=== PATIENT | male | born 1970 | race Two or more races ===

== ENCOUNTER 2020-10-26 14:55 | Outpatient (REF) | payer OTHER, SELFPAY ==
[2020-10-26 15:50] LABS: COVID-19 Test Negative (Negative)
== END 2020-10-26 14:56 | disposition home or self-care (01) ==
LOC: HO.LAB 14:55
PROVIDERS: Visit Provider Internal Medicine
DX: Z20.822 Contact with and (suspected) exposure to COVID-19 (principal)
CPT/HCPCS: 36415; 87635; C9803

== ENCOUNTER → 2022-09-08 10:19 | Outpatient (BNVA) | payer OTHER, SELFPAY | PROVIDERS: Visit Provider Internal Medicine | DX: M77.11 Lateral epicondylitis, right elbow (principal) | CPT/HCPCS: 73080; 99203 ==

== ENCOUNTER → 2022-09-15 14:40 | Outpatient (BNVA) | payer OTHER, SELFPAY | PROVIDERS: PCP Internal Medicine; Visit Provider Internal Medicine | DX: M77.11 Lateral epicondylitis, right elbow (principal); M70.841 Other soft tissue disorders related to use, overuse and pressure, right hand; M25.511 Pain in right shoulder | CPT/HCPCS: 99213 ==

== ENCOUNTER → 2022-09-25 12:57 | Outpatient (BNVA) | payer OTHER, SELFPAY | PROVIDERS: PCP Internal Medicine; Visit Provider Internal Medicine | DX: M77.11 Lateral epicondylitis, right elbow (principal); M25.511 Pain in right shoulder; M77.8 Other enthesopathies, not elsewhere classified | CPT/HCPCS: 99202; 99213 ==

== ENCOUNTER → 2022-10-10 14:44 | Outpatient (BNVA) | payer OTHER, SELFPAY | PROVIDERS: PCP Internal Medicine; Visit Provider Internal Medicine | DX: M77.11 Lateral epicondylitis, right elbow (principal); M75.01 Adhesive capsulitis of right shoulder | CPT/HCPCS: 99213 ==

== ENCOUNTER 2022-10-21 15:00 | Outpatient (RCR) | payer OTHER, SELFPAY ==
--- NOTE | 2022-09-19 14:58 | MHC.PT.EP ---
[facility] [place] Office [place] Office [place] Office [address] [place] [address] Dr Renan Smith [address] [phone] F: [phone] F: [phone] F: [phone] F: [phone] Physical Therapy Plan of Care Date of Evaluation: Date of Surgery: NA Diagnosis: R SHOULDER TENDONITIS Assessment: Pt IS 52 YO RHD M WHO DOES [employer] FOR WORK WITH C/O INCREASE IN R UE PAIN SINCE September WHILE WORKING ON [employer] (LOTS OF PULLING AND PUSHING). Pt WITH HX R CTS SURGERY. REPORTS SEEING OT ON THURSDAY FOR ELBOW AND WRIST ISSUES. HAS TENNIS ELBOW STRAP (NOT USING AT TIME OF EVAL..REPORTS FALLS OFF WHEN PUTS JACKET ON). IS REFERRED TO PT FOR R SHLDER TENDONITIS. PRESENTS WITH LIMITED END RANGE R SHLDER RANGE WITH PAIN, POOR POSTURE, WITH TIGHT PECS AND APPARENT LIMITATIONS IN UPPER BACK STRENGTH. R SHLDER STRENGTH IS GOOD WITH MMT. SHOULD BENEFIT FROM PT TO HELP STRETCH UPPER BACK AND CERVICAL MMS (LIMITED CERV ROM NOTED DURING EVAL), WORK ON POSTURE AND UPPER BACK/UE STRENGTHENING. Pt IS OOW SINCE 09/08. TO SEE OT ON 09/22, ORTHO ON 09/25, WC 09/25. OF NOTE, WITH INSURANCE UNABLE TO DO PT AND OT SESSIONS ON SAME DAY..MAY BENEFIT FROM TRANSFER OF CARE TO ALL OT OR ALL PT Frequency and Duration: The patient will be seen 2X/WK X 4 WKS Short Term Goals: 1. INCREASED POSTURE AWARENESS AND AWARENESS SHLDER CARE 2. CENTRALIZE SXS 3. RTW LT DUTY Snf Goals: 1. I HEP WITH DC EX PLAN 2. DECREASED SHLDER PAIN AT LEAST 50% WITH ADLS 3 INCREASED R SHLDER FLEX AND ABD 10 DEGREES 4. RTW FD Treatment Plan: Modalities to reduce pain, spasms and effusion. Manual therapy to restore motion and function. Therapeutic exercise to improve strength and flexibility. Neuromuscular re-education for posture and balance. Therapeutic activities to return to functional activities of daily living. Electronically signed by: KARL TO PT Please sign and return to therapist. Thank you for your referral.
--- NOTE | 2022-10-21 16:11 | MHC.PT.DC ---
[facility] [place] Office [place] Office [place] Office [address] Renan Smith [address] [phone] F: [phone] F: [phone] F: [phone] F: [phone] Physical Therapy Discharge Report Diagnosis: R SHOULDER TENDONITIS Date of Surgery: NA Date of Evaluation: 09/19/22 Date of Discharge: 10/21/22 Treatments to Date: 8 Cancellations to Date: No Shows to Date: Discharge Status: Achieved Goals Improved Function Independent with HEP Discharge Summary: HAS MET MOST PT GOALS (AWAITING RTW)GOOD PERF EXS WITH PLAN FOR GYM Electronically signed by: KARL TO PT Please sign and return to therapist. Thank you for your referral.
== END 2022-10-21 16:11 | disposition home or self-care (01) ==
LOC: HO.PT 15:00
PROVIDERS: PCP Internal Medicine; Visit Provider Internal Medicine
DX: M25.511 Pain in right shoulder (principal); M77.8 Other enthesopathies, not elsewhere classified
CPT/HCPCS: 97110; 97140; 97161; 97530; 97535

== ENCOUNTER → 2022-10-27 14:11 | Outpatient (BNVA) | payer OTHER, SELFPAY | PROVIDERS: PCP Internal Medicine; Visit Provider Orthopaedic Surgery | DX: M77.11 Lateral epicondylitis, right elbow (principal) | CPT/HCPCS: 99212 ==

== ENCOUNTER → 2022-11-03 10:05 | Outpatient (BNVA) | payer OTHER, SELFPAY | PROVIDERS: PCP Internal Medicine; Visit Provider Internal Medicine | DX: M77.11 Lateral epicondylitis, right elbow (principal); M25.511 Pain in right shoulder; M77.8 Other enthesopathies, not elsewhere classified | CPT/HCPCS: 99213 ==

== ENCOUNTER → 2022-12-08 08:31 | Outpatient (BNVA) | payer OTHER, SELFPAY | PROVIDERS: PCP Internal Medicine; Visit Provider Orthopaedic Surgery | DX: M77.11 Lateral epicondylitis, right elbow (principal) | CPT/HCPCS: 99212 ==

== ENCOUNTER → 2022-12-08 08:56 | Outpatient (BNVA) | payer OTHER, SELFPAY | PROVIDERS: PCP Internal Medicine; Visit Provider Internal Medicine | DX: M77.11 Lateral epicondylitis, right elbow (principal); M77.8 Other enthesopathies, not elsewhere classified; M25.511 Pain in right shoulder | CPT/HCPCS: 99213 ==

== ENCOUNTER → 2023-01-05 13:27 | Outpatient (BNVA) | payer OTHER, SELFPAY | PROVIDERS: PCP Internal Medicine; Visit Provider Internal Medicine | DX: M77.12 Lateral epicondylitis, left elbow (principal) | CPT/HCPCS: 99213 ==

== ENCOUNTER → 2023-02-05 15:04 | Outpatient (BNVA) | payer OTHER, SELFPAY | PROVIDERS: PCP Internal Medicine; Visit Provider Internal Medicine | DX: M77.11 Lateral epicondylitis, right elbow (principal); M77.21 Periarthritis, right wrist; M25.511 Pain in right shoulder | CPT/HCPCS: 99213 ==

== ENCOUNTER → 2023-03-12 14:57 | Outpatient (BNVA) | payer OTHER, SELFPAY | PROVIDERS: PCP Internal Medicine; Visit Provider Internal Medicine | DX: M77.11 Lateral epicondylitis, right elbow (principal); M77.8 Other enthesopathies, not elsewhere classified; M25.511 Pain in right shoulder | CPT/HCPCS: 99213 ==

== ENCOUNTER 2023-03-30 14:42 | Outpatient (AMB) | payer OTHER, SELFPAY ==
--- NOTE | 2023-03-30 15:09 | A.OFFVIS_ITS ---
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 He is looking to have an injection today. Allergies bee pollen [BEE STINGS] Allergy (Unknown, Unverified 03/30/23 15:14) SWELL UP Medication List - Last Reconciled 03/30/23 by Gely Bay RN atorvastatin 20 mg PO DAILY omeprazole 20 mg PO DAILY HPI OV- WC- Rt Tennis elbow HPI Details Cheko is a 52 year old man who presents for a follow-up of his right lateral epidoncylitis. This is a work-related injury, DOI: 09/08/22 He continues to feel like he has been improving with rest & therapy for his shoulder and elbow, but he continues to have pain. He says he recently aggravated his elbow at work again. He says work connections recommended he come in today for an injection. He has been following with [employer] and has been working light duty since his last appointment. He says his elbow is stiff and somewhat painful in the mornings, but this improves with time. 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 Review of Systems Const All systems reviewed & are unremarkable except as noted in HPI and below Physical Exam Const General: no acute distress, alert and awake Orientation/consciousness: patient oriented x3 HEENT Head: Yes normocephalic and Yes atraumatic Eyes EOM: EOMs intact bilaterally Resp Effort & Inspection: normal respiratory effort and able to speak in complete sentences Cardio Jugular venous distension: no JVD Skin General skin exam: turgor normal Rashes: no rashes Neuro General: patient oriented x3 Extrem Other: Tenderness to palpation lateral epicondyle Pain with resisted wrist extension Psych Appearance: grossly normal Affect: normal affect Attitude: cooperative Office Procedures Joint Injection/Drain Joint Injection/Drain Details: Injected 1 mL of Decadron and 3 mL 1% lidocaine and 3 mL of 0.25% Marcaine. Site was prepped using aseptic technique. Patient tolerated the procedure well. Primary Site: right tennis elbow Approach Used: anterolateral Coding 23721 - Epicondyle Procedure code (CPT) selection complete Results Reviewed Results Reviewed: 03/30/23 15:26 BUPivacaine MPF 0.25 % [Sensorcaine-MPF 0.25% 10 ML] 10 ml .ROUTE .STK-MED ONE Lidocaine HCl 1 % [Xylocaine 1 %] 2 ml .ROUTE .STK-MED ONE dexAMETHasone sod phosphate [Decadron] 4 mg .ROUTE .STK-MED ONE Assessment & Plan Assessment & Plan (1) Right lateral epicondylitis: Code(s): M77.11 - Lateral epicondylitis, right elbow Plan: This is a 52 year old man with right lateral epicondylitis. He injured his elbow on 09/08/22, working with [employer], and was sent for PT. He continues to have pain with heavy lifting or grasping activities, which has improved but he aggravated his arm at work recently, causing his pain to flare. He has returned to work following his last appointment, and has been following with [employer] concerning his restrictions. I discussed his diagnosis and treatment options. From an orthopedic perspective, I recommend he avoid lifting >20lb with his RUE, and limit or avoid any repetitive gripping activities. I injected his right lateral epicondyle today, which he tolerated well, and recommend he continue to wear his Counter-force brace. He can follow up prn. Plan Scribed for Jesus Shrestha MD by Denny Malloy, medical device engineer, on 03/30/23 at 3:30 PM, EST. Coding Level of Care Code Est Pt Level 3 (31809) Diagnoses Right lateral epicondylitis M77.11 CPT Codes Coding - Joint 2: 22210 - Epicondyle ([id number])
--- NOTE | 2023-03-30 15:09 | A.OFFVIS_ITS ---
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 of Systems Const All systems reviewed & are unremarkable except as noted in HPI and below Physical Exam Const General: no acute distress, alert and awake Orientation/consciousness: patient oriented x3 HEENT Head: Yes normocephalic and Yes atraumatic Eyes EOM: EOMs intact bilaterally Resp Effort & Inspection: normal respiratory effort and able to speak in complete sentences Cardio Jugular venous distension: no JVD Skin General skin exam: turgor normal Rashes: no rashes Neuro General: patient oriented x3 Psych Appearance: grossly normal Affect: normal affect Attitude: cooperative Office Procedures Joint Injection/Drain Joint Injection/Drain Details: Injected 1 mL of Decadron and 3 mL 1% lidocaine and 3 mL of 0.25% Marcaine. Site was prepped using aseptic technique. Patient tolerated the procedure well. Primary Site: right tennis elbow Approach Used: anterolateral Coding 56851 - Epicondyle Procedure code (CPT) selection complete Results Reviewed Results Reviewed: 03/30/23 15:26 BUPivacaine MPF 0.25 % [Sensorcaine-MPF 0.25% 10 ML] 10 ml .ROUTE .STK-MED ONE Lidocaine HCl 1 % [Xylocaine 1 %] 2 ml .ROUTE .STK-MED ONE dexAMETHasone sod phosphate [Decadron] 4 mg .ROUTE .STK-MED ONE Coding Level of Care Code Left Without Being Seen CPT Codes Coding - Joint 2: 00441 - Epicondyle ([id number]) Comment Duplicate note. Please disregard
== END 2023-03-30 15:48 | disposition home or self-care (01) ==
PROVIDERS: PCP Internal Medicine; Visit Provider Orthopaedic Surgery
DX: M77.11 Lateral epicondylitis, right elbow (principal)
CPT/HCPCS: 20550; 99213

== ENCOUNTER → 2023-03-30 14:42 | Outpatient (BNVA) | payer OTHER, SELFPAY | PROVIDERS: PCP Internal Medicine; Visit Provider Orthopaedic Surgery | DX: M77.11 Lateral epicondylitis, right elbow (principal) | CPT/HCPCS: 20550; 20551; 99212; J1100 ==

== ENCOUNTER → 2023-04-10 14:37 | Outpatient (BNVA) | payer OTHER, SELFPAY | PROVIDERS: PCP Internal Medicine; Visit Provider Physician Assistant | DX: M77.11 Lateral epicondylitis, right elbow (principal) | CPT/HCPCS: 99213 ==

== ENCOUNTER → 2023-04-29 11:34 | Outpatient (BNVA) | payer OTHER, SELFPAY | PROVIDERS: PCP Internal Medicine; Visit Provider Internal Medicine | DX: M77.11 Lateral epicondylitis, right elbow (principal) | CPT/HCPCS: 99213 ==

== ENCOUNTER → 2023-05-20 10:40 | Outpatient (BNVA) | payer OTHER, SELFPAY | PROVIDERS: PCP Internal Medicine; Visit Provider Internal Medicine | DX: M77.11 Lateral epicondylitis, right elbow (principal) | CPT/HCPCS: 99213 ==

== ENCOUNTER → 2023-06-05 09:35 | Outpatient (BNVA) | payer OTHER, SELFPAY | PROVIDERS: PCP Internal Medicine; Visit Provider Internal Medicine | DX: M77.11 Lateral epicondylitis, right elbow (principal) | CPT/HCPCS: 99213 ==

== ENCOUNTER 2023-06-22 09:19 | Outpatient (AMB) | payer OTHER, SELFPAY ==
--- NOTE | 2023-06-22 09:33 | MHC.OFFVIS ---
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 Last Injection done 03/30/23. Injection was not helpful but made it worse. Appt states MRI review, however i dont see mri ordered of study scanned. He states that work connection put MRI in the system but it is not there Allergies bee pollen [BEE STINGS] Allergy (Unknown, Unverified 03/30/23 15:14) SWELL UP HPI OV - WC Right Elbow - Last Injection 03/30/23 HPI Details Cheko is a 52 year old man who presents for a follow-up of his right lateral epidoncylitis. This is a work-related injury, DOI: 09/08/22 He continues to have pain & limited function with daily activity. He was last seen, and injected, on 03/30/23, which he says was helpful only briefly and was then followed by pain. He says [employer] ordered an MRI of his elbow and he is here for a review. 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 Review of Systems Const All systems reviewed & are unremarkable except as noted in HPI and below Physical Exam Const General: no acute distress, alert and awake Orientation/consciousness: patient oriented x3 HEENT Head: Yes normocephalic and Yes atraumatic Eyes EOM: EOMs intact bilaterally Resp Effort & Inspection: normal respiratory effort and able to speak in complete sentences Cardio Jugular venous distension: no JVD Skin General skin exam: turgor normal Rashes: no rashes Neuro General: patient oriented x3 Extrem Other: TTP over lateral epicondyle + dynamic resisted wrist extension test Psych Appearance: grossly normal Affect: normal affect Attitude: cooperative Results Reviewed Results Reviewed: I personally reviewed relevant MR images Partial thickness tearing/sprain of common extensor origin right elbow Assessment & Plan Assessment & Plan (1) Right lateral epicondylitis: Code(s): M77.11 - Lateral epicondylitis, right elbow Plan: 9 months of right lateral epicondyle pain that has not responded to injections, bracing and activity modification. He still cannot lift or engage in strenuous grasping required for his work in [employer]. I recommend a PRP injection. This has been shown to reduce the need for surgery and I would try to avoid surgery given length of recovery required and relatively low success rates. We will discuss with WC. In the meantime may continue current work restrictions. Plan Scribed for Jesus Shrestha MD by Denny Malloy, anesthesiology medical doctor, on 06/22/23 at 9:50 AM, EST. Coding Level of Care Code Est Pt Level 3 (62763) Diagnoses Right lateral epicondylitis M77.11
== END 2023-06-22 11:13 | disposition home or self-care (01) ==
PROVIDERS: PCP Internal Medicine; Visit Provider Orthopaedic Surgery
DX: M77.11 Lateral epicondylitis, right elbow (principal); Z04.2 Encounter for examination and observation following work accident
CPT/HCPCS: 99213

== ENCOUNTER → 2023-06-22 09:19 | Outpatient (BNVA) | payer OTHER, SELFPAY | PROVIDERS: PCP Internal Medicine; Visit Provider Orthopaedic Surgery | DX: M77.11 Lateral epicondylitis, right elbow (principal) | CPT/HCPCS: 99212 ==

== ENCOUNTER → 2023-06-24 10:11 | Outpatient (BNVA) | payer OTHER, SELFPAY | PROVIDERS: PCP Internal Medicine; Visit Provider Internal Medicine | DX: M77.11 Lateral epicondylitis, right elbow (principal) | CPT/HCPCS: 99213 ==

== ENCOUNTER 2023-07-24 13:37 | Outpatient (AMB) | payer OTHER, SELFPAY ==
--- NOTE | 2023-07-24 13:43 | A.OFFVIS_ITS ---
Intake Intake Visit Reasons: EP, PRP injection Right Elbow Intake Note: Cheko is a 52 year old male who presents today for a right elbow PRP injection. 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 Site was prepped using aseptic technique. Patient tolerated the procedure well. Primary Site: left tennis elbow Procedure: The patient tolerated the procedure well Coding 27988 - Epicondyle Procedure code (CPT) selection complete Assessment & Plan Assessment & Plan (1) Right lateral epicondylitis: Code(s): M77.11 - Lateral epicondylitis, right elbow Plan: Injected PRP right lateral epicondyle Coding Level of Care Code Est Pt Level 2 (19078) Diagnoses Right lateral epicondylitis M77.11 CPT Codes Coding - Joint 2: 43566 - Epicondyle ([id number])
== END 2023-07-24 15:41 | disposition home or self-care (01) ==
PROVIDERS: PCP Internal Medicine; Visit Provider Orthopaedic Surgery
DX: M77.11 Lateral epicondylitis, right elbow (principal)
CPT/HCPCS: 0232T

== ENCOUNTER → 2023-07-24 13:37 | Outpatient (BNVA) | payer OTHER, SELFPAY | PROVIDERS: PCP Internal Medicine; Visit Provider Orthopaedic Surgery ==

== ENCOUNTER → 2023-07-31 08:00 | Outpatient (BNVA) | payer OTHER, SELFPAY | PROVIDERS: PCP Internal Medicine; Visit Provider Internal Medicine | DX: M77.11 Lateral epicondylitis, right elbow (principal) | CPT/HCPCS: 99213 ==

== ENCOUNTER 2023-08-17 09:10 | Outpatient (AMB) | payer OTHER, SELFPAY ==
--- NOTE | 2023-08-17 09:17 | A.OFFVIS_ITS ---
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 PRP Injection done 07/24/2022. Patient reports that it is hard to tell if the injection has helped or not. Allergies bee pollen [BEE STINGS] Allergy (Unknown, Unverified 08/17/23 09:18) SWELL UP HPI ov- Right lateral epicondylitis HPI Details Cheko is a 53 year old man who returns ~1 month S/P right elbow PRP injection for his lateral epicondylitis, S/P work injury, DOI: 09/08/22. He says he is unsure if this injection helped him. He would like to discuss RTW restrictions. 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 Review of Systems Const All systems reviewed & are unremarkable except as noted in HPI and below Physical Exam Const General: no acute distress, alert and awake Orientation/consciousness: patient oriented x3 HEENT Head: Yes normocephalic and Yes atraumatic Eyes EOM: EOMs intact bilaterally Resp Effort & Inspection: normal respiratory effort and able to speak in complete sentences Cardio Jugular venous distension: no JVD Skin General skin exam: turgor normal Rashes: no rashes Neuro General: patient oriented x3 Extrem Other: TTP right lateral epicondyle NO STS inc site c/d/i Psych Appearance: grossly normal Affect: normal affect Attitude: cooperative Assessment & Plan Assessment & Plan (1) Right lateral epicondylitis: Code(s): M77.11 - Lateral epicondylitis, right elbow Plan: S/p PRTP lateral epicondyle COnt ROM and no strengthening no grasping or lifting at work F/u 4 weeks Plan Prepared for Jesus Shrestha MD by Denny Malloy, biomedical engineering internship, on 08/17/23 at 9:21 AM, EST. Coding Level of Care Code Est Pt Level 3 (91762) Diagnoses Right lateral epicondylitis M77.11
== END 2023-08-17 10:06 | disposition home or self-care (01) ==
PROVIDERS: PCP Internal Medicine; Visit Provider Orthopaedic Surgery
DX: M77.11 Lateral epicondylitis, right elbow (principal); Z04.2 Encounter for examination and observation following work accident
CPT/HCPCS: 99213

== ENCOUNTER → 2023-08-17 09:10 | Outpatient (BNVA) | payer OTHER, SELFPAY | PROVIDERS: PCP Internal Medicine; Visit Provider Orthopaedic Surgery | DX: M77.11 Lateral epicondylitis, right elbow (principal) | CPT/HCPCS: 99212 ==

== ENCOUNTER → 2023-08-19 07:50 | Outpatient (BNVA) | payer OTHER, SELFPAY | PROVIDERS: PCP Internal Medicine; Visit Provider Internal Medicine | DX: M77.11 Lateral epicondylitis, right elbow (principal) | CPT/HCPCS: 99213 ==

== ENCOUNTER 2023-09-14 09:19 | Outpatient (AMB) | payer OTHER, SELFPAY ==
[2023-09-14 09:20] VITALS: BMI 28.7
--- NOTE | 2023-09-14 09:20 | A.OFFVIS_ITS ---
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 PRP Injection done 07/24/2022. At his last visit he was advised to work on ROM with no strengthening and no grasping or lifting at work. Allergies bee pollen [BEE STINGS] Allergy (Unknown, Unverified 09/14/23 09:21) SWELL UP HPI ov- Right lateral epicondylitis HPI Details This is a 53-year-old gentleman with ongoing lateral epicondylitis. He had a PRP injection approximately 4 weeks ago. He states he thinks it was helpful but he still has pain with grasping activities. He feels like if he does any heavy activity with his right hand he has severe pain afterward and is unable to repeat that activity for several days. 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 It has been 4 weeks since the last PRP injection which I think was helpful and I recommend a repeat PRP injection. We had a long discussion regarding options. I think surgery is an option but it should be a last resort and I think a 2nd round of PRP has been shown to be helpful. We will do this again with ultrasound guidance. His work restrictions should remain unchanged. Coding Level of Care Code Est Pt Level 4 (60666) Diagnoses Right lateral epicondylitis M77.11
== END 2023-09-16 14:43 | disposition home or self-care (01) ==
PROVIDERS: PCP Internal Medicine; Visit Provider Orthopaedic Surgery
DX: M77.11 Lateral epicondylitis, right elbow (principal); Z04.2 Encounter for examination and observation following work accident
CPT/HCPCS: 99214

== ENCOUNTER → 2023-09-14 09:19 | Outpatient (BNVA) | payer OTHER, SELFPAY | PROVIDERS: PCP Internal Medicine; Visit Provider Orthopaedic Surgery | DX: M77.11 Lateral epicondylitis, right elbow (principal) | CPT/HCPCS: 99212 ==

== ENCOUNTER → 2023-09-23 07:53 | Outpatient (BNVA) | payer OTHER, SELFPAY | PROVIDERS: PCP Internal Medicine; Visit Provider Internal Medicine | DX: M77.11 Lateral epicondylitis, right elbow (principal) | CPT/HCPCS: 99213 ==

== ENCOUNTER 2023-10-16 12:03 | Outpatient (AMB) | payer OTHER, SELFPAY ==
--- NOTE | 2023-10-16 12:06 | MHC.OFFVIS ---
Intake Intake Visit Reasons: PRP injection Intake Note: This is a 53 year old male that presents for a PRP injection of the left elbow. 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
== END 2023-10-16 13:23 | disposition home or self-care (01) ==
LOC: HO.HOSPRC 12:03
PROVIDERS: PCP Internal Medicine; Visit Provider Orthopaedic Surgery
DX: M77.11 Lateral epicondylitis, right elbow (principal)
CPT/HCPCS: 0232T

== ENCOUNTER → 2023-10-16 12:03 | Outpatient (BNVA) | payer OTHER, SELFPAY | PROVIDERS: PCP Internal Medicine; Visit Provider Orthopaedic Surgery ==

== ENCOUNTER → 2023-10-26 07:52 | Outpatient (BNVA) | payer OTHER, SELFPAY | PROVIDERS: PCP Internal Medicine; Visit Provider Internal Medicine | DX: M77.11 Lateral epicondylitis, right elbow (principal) | CPT/HCPCS: 99213 ==

== ENCOUNTER 2023-12-03 08:18 | Outpatient (AMB) | payer OTHER, SELFPAY ==
[2023-12-03 08:21] VITALS: BMI 28.7
--- NOTE | 2023-12-03 08:21 | A.OFFVIS_ITS ---
Vital Signs 12/03/23 08:21 Height 6 ft 3 in Weight 230 lb BMI 28.7 Intake Visit Reasons: OV - Right Lateral Epicondylitis - PRP 10/16/23 Intake Note: Cheko is a 53 year old right hand dominant male who presents today for a follow up of his Right lateral Epicondylitis, this is a work related injury from 09/08/22. PRP injections in the right elbow administered on 10/16/23 & 07/24/2022. Patient reports that he feels that he is improving but he has been resting the arm significantly. Allergies bee pollen [BEE STINGS] Allergy (Unknown, Unverified 10/16/23 12:07) SWELL UP HPI HPI OV - Right Lateral Epicondylitis - PRP 10/16/23: Details: Cheko is a 53 year old right hand dominant male who presents today for a follow up of his Right lateral Epicondylitis, this is a work related injury from 09/08/22. PRP injections in the right elbow administered on 10/16/23 & 07/24/2022. Patient reports that he feels that he is improving but he has been resting the arm significantly. 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
== END 2023-12-03 09:20 | disposition home or self-care (01) ==
PROVIDERS: PCP Internal Medicine; Visit Provider Orthopaedic Surgery
DX: M77.11 Lateral epicondylitis, right elbow (principal)
CPT/HCPCS: 99213

== ENCOUNTER → 2023-12-03 08:18 | Outpatient (BNVA) | payer OTHER, SELFPAY | PROVIDERS: PCP Internal Medicine; Visit Provider Orthopaedic Surgery | DX: M77.11 Lateral epicondylitis, right elbow (principal) | CPT/HCPCS: 99212 ==

== ENCOUNTER → 2023-12-07 08:02 | Outpatient (BNVA) | payer OTHER, SELFPAY | PROVIDERS: PCP Internal Medicine; Visit Provider Internal Medicine | DX: M77.11 Lateral epicondylitis, right elbow (principal) | CPT/HCPCS: 99213 ==

== ENCOUNTER 2024-01-04 08:20 | Outpatient (AMB) | payer OTHER, SELFPAY ==
[2024-01-04 08:27] VITALS: BMI 28.7
--- NOTE | 2024-01-04 08:27 | MHC.OFFVIS ---
Vital Signs 01/04/24 08:27 01/04/24 08:33 Height 6 ft 3 in 6 ft 3 in Weight 230 lb 230 lb BMI 28.7 28.7 Handedness Right Intake Visit Reasons: OV- Right Lateral Epicondylitis - PRP 10/16/23 Intake Note: Cheko is a 53 year old male who presents today for a follow up of Right Lateral Epicondylitis, PRP 10/16/23. This is a work related injury from 09/08/22. PRP injections in the right elbow administered on 10/16/23 & 07/24/2022. Patient reports he is still having pain and tenderness, when he straightens his arm he reports sharp pain. He explains repetitive motion and heavy weight like carrying groceries causes more discomfort. Allergies bee pollen [BEE STINGS] Allergy (Unknown, Unverified 01/04/24 08:33) SWELL UP HPI HPI OV- Right Lateral Epicondylitis - PRP 10/16/23: Details: Cheko is a 53 year old male who presents today for a follow up of Right Lateral Epicondylitis, PRP 10/16/23. This is a work related injury from 09/08/22. PRP injections in the right elbow administered on 10/16/23 & 07/24/2022. Patient reports he is still having pain and tenderness, when he straightens his arm he reports sharp pain. He explains repetitive motion and heavy weight like carrying groceries causes more discomfort. He has not returned to work. 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 He states his pain is tolerable unless he engages in repetitive grasping activities. 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 Full range of motion right elbow Assessment & Plan Assessment & Plan (1) Right lateral epicondylitis: Code(s): M77.11 - Lateral epicondylitis, right elbow Category: Medical Plan: This is a 53-year-old right-hand dominant gentleman with refractory lateral epicondylitis of the right elbow. We have tried PRP injections x2 and while he has had relief he still has pain any time he engages in forceful grasping activities with his right hand. We had a long discussion. I recommend open debridement of the lateral epicondyle. I explained the procedure to him. I discussed the risks, benefits and alternatives including, but not limited to, infection, stiffness, incomplete symptom resolution, pain. He expressed understanding and we will proceed forward accordingly. Coding Level of Care Code Est Pt Level 4 (57611) Diagnoses Right lateral epicondylitis M77.11
[2024-01-04 08:33] VITALS: BMI 28.7
== END 2024-01-04 08:59 | disposition home or self-care (01) ==
PROVIDERS: PCP Internal Medicine; Visit Provider Orthopaedic Surgery
DX: M77.11 Lateral epicondylitis, right elbow (principal)
CPT/HCPCS: 99214

== ENCOUNTER → 2024-01-04 08:20 | Outpatient (BNVA) | payer OTHER, SELFPAY | PROVIDERS: PCP Internal Medicine; Visit Provider Orthopaedic Surgery | DX: M77.11 Lateral epicondylitis, right elbow (principal) | CPT/HCPCS: 99212 ==

== ENCOUNTER 2024-02-09 12:11 | Outpatient (AMB) | payer OTHER, SELFPAY ==
--- NOTE | 2024-02-09 12:24 | A.OFFVIS_ITS ---
Vital Signs 02/09/24 12:33 Height 6 ft 3 in Weight 230 lb BMI 28.7 Intake Visit Reasons: Preop RT epicondylitis debridement 02/10/24 NE Intake Note: Black is a 53 year old right hand dominant male who presents today for a pre op appointment for his RT epicondylitis debridement 02/10/24 NE. Allergies bee pollen [BEE STINGS] Allergy (Unknown, Verified 02/09/24 12:33) SWELL UP HPI HPI Preop RT epicondylitis debridement 02/10/24 NE: Details: 53-year-old right hand dominant male who presents in the office today for his/her preoperative history and physical exam prior to a right elbow open debridement of the lateral epicondyle to be performed on 02/10/[address] Jesus Shrestha.? ? Patient has an allergy history, as follows:? -Bee pollen; edema? ? Patient is currently taking, as follows:? -Omeprazole 20 mg PO daily? ? Patient has no significant medical history.? ? Patient has a surgical history, as follows:? -Hx of right carpal tunnel release? ? Patient has a social history, as follows:? 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 Review of Systems Const All systems reviewed & are unremarkable except as noted in HPI and below Physical Exam Vital Signs: BMI result Body Mass Index 28.7 Const General: cooperative, healthy appearing, comfortable, no acute distress, well developed, alert and awake Orientation/consciousness: patient oriented x3 HEENT Head: Yes normal to inspection, Yes normocephalic and Yes atraumatic Eyes General: appearance normal, both eyes and all related structures Neck Neck: Yes normal visual inspection and Yes no lymphadenopathy Resp Effort & Inspection: normal respiratory effort and able to speak in complete sentences Cardio Rate: regular rate Peripheral pulses: Peripheral pulses 2+ throughout GI Inspection: Yes normal to inspection Palpation (GI): Soft to palpation Skin General skin exam: no rashes or lesions noted Neuro General: patient oriented x3 Extrem Other: Right elbow: ttp lateral epicondyle Pain with resisted wrist extension and long finger extension. Full range of motion right elbow Psych Mental Status: mental status grossly normal Assessment & Plan Assessment & Plan (1) Right lateral epicondylitis: Code(s): M77.11 - Lateral epicondylitis, right elbow Category: Medical Plan Mr. Almaraz is a 53-year-old right hand dominant male who presents in the office today for his/her preoperative history and physical exam prior to a right elbow open debridement of the lateral epicondyle to be performed on 02/10/[address] Jesus Shrestha.? ? Patient has an allergy history, as follows:? -Bee pollen; edema? ? Patient is currently taking, as follows:? -Omeprazole 20 mg PO daily? ? Patient has no significant medical history.? ? Patient has a surgical history, as follows:? -Hx of right carpal tunnel release? ? Patient has a social history, as follows:? 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 ? I discussed in detail the procedure and what to expect pre and post operatively. We discussed the risks, benefits, alternatives to the surgery and the rehabilitation course. The risks include infection, bleeding, nerve injury, ongoing pain, swelling, and stiffness, perioperative risk of injury to bones and soft tissues, and blood clots.?? ? I have answered all questions and with their understanding they have consented to move forward with a right elbow open debridement of the lateral epicondyle to be performed on 02/10/[address] Jesus Shrestha.? ? Follow-up will be at the post operative appointment on 02/18/24, or sooner if needed.? Patient Instructions: Scribed by Justine Michael medical sales specialist, for Juliana Smith PA-C on 02/09/2024 at 12:15 pm, EST.? Coding Level of Care Code Global (75953) Diagnoses Right lateral epicondylitis M77.11
[2024-02-09 12:33] VITALS: BMI 28.7
== END 2024-02-09 12:50 | disposition home or self-care (01) ==
PROVIDERS: PCP Internal Medicine; Visit Provider Physician Assistant
DX: M77.11 Lateral epicondylitis, right elbow (principal)
CPT/HCPCS: 99024

== ENCOUNTER → 2024-02-09 12:11 | Outpatient (BNVA) | payer OTHER, SELFPAY | PROVIDERS: PCP Internal Medicine; Visit Provider Physician Assistant | DX: Z01.818 Encounter for other preprocedural examination (principal); M77.11 Lateral epicondylitis, right elbow | CPT/HCPCS: 99212 ==

== ENCOUNTER 2024-02-10 05:44 | Day surgery (SDC) | payer OTHER, SELFPAY ==
[2024-02-08 07:44] VITALS: BMI 28.7
--- NOTE | 2024-02-09 10:11 | HO.ANESPROP2 ---
Documented by User: Sabine Ha NP 02/09/24 10:12 HPI - Anesthesia Eval Consult details Narrative: 53yo M for Right Lateral Epicondylitis Elbow Debridement PMFSH Active Problems Active Problems: All Active Problems Right lateral epicondylitis (Acute) Elbow pain, right (Acute ~09/08/22) Surgical History Surgical History History of carpal tunnel release Social History Social History Alcohol intake: never Patient Tobacco Use Status: Current everyday Tobacco user Tobacco use type: Smokeless Tobacco Cigarettes Per Day: 1 e-Cigarette/Vaping Use: Currently Using Are you DNR?: No Advance Directives: No Advance Directives Information Provided: Yes Recently lost weight without trying: No Nutrition Risks: No Nutritional Risk Current occupational status: employed Current occupation: [employer] Allergies Allergy/AdvReac Type Severity Reaction Status Date / Time bee pollen [BEE STINGS] Allergy Unknown SWELL UP Verified 02/09/24 12:33 Home Medications ?Medication ?Instructions ?Recorded ?Confirmed ?Last Taken ?Type omeprazole 20 mg capsule,delayed 20 mg PO DAILY 09/25/22 10/16/23 Unknown History release Exam Height,Weight and Vital Signs: Height 6 ft 3 in Weight 104.326 kg Assessment and Plan Assessment Anesthesia Assessment: Chart Reviewed Documented by User: Luz Canseco MD 02/10/24 07:25 PMFSH Family History Family history of problems with anesthesia: No Surgical History Surgical History History of carpal tunnel release History of Problems with Anesthesia: No Social History Social History Alcohol intake: never Patient Tobacco Use Status: Current everyday Tobacco user Tobacco use type: Smokeless Tobacco Cigarettes Per Day: 1 e-Cigarette/Vaping Use: Currently Using Are you DNR?: No Advance Directives: No Advance Directives Information Provided: Yes Recently lost weight without trying: No Nutrition Risks: No Nutritional Risk Current occupational status: employed Current occupation: [employer] Allergies Allergy/AdvReac Type Severity Reaction Status Date / Time bee pollen [BEE STINGS] Allergy Unknown SWELL UP Verified 02/09/24 12:33 Home Medications ?Medication ?Instructions ?Recorded ?Confirmed ?Last Taken ?Type omeprazole 20 mg capsule,delayed 20 mg PO DAILY 09/25/22 10/16/23 Unknown History release Exam Airway Mallampati Class: II TM Dist: >3cm Neck ROM: Full Heart: rrr Lungs: cta Assessment and Plan Assessment Anesthesia Assessment: Anesthesia Plan Discussed Final Anesthetic Review Family History of Problems with Anesthesia: No History of Problems with Anesthesia: No NPO: Yes ASA Class: II Final Preanesthetic Review: No Changes in Pt Med Stat, Meds/Allgs Chart Reviewed, Consent Obtained/Reviewed and Anes Risks/Benef Reviewed Patient Risk: Low Procedure Risk: Low Anesthetic Plan Anesthetic Plan: GA Disposition: Standard PACU
[2024-02-10] VITALS (8 sets, daily range): BP systolic 116–142; BP diastolic 69–97; PULSE 72–96; RESP 16–20; TEMP 36.2–36.8; O2SAT 92–97; BMI 28.7
[2024-02-10] MEDS: Lactated Ringers 1,000 ML 100 ML IVCONT (06:16)
--- NOTE | 2024-02-10 07:29 | MHC.SHP ---
Pre-Procedural Eval Section A - 24 Hr Update-Section A only Date of Service: 02/10/24 The patient is an INPATIENT: No Changes since office visit: No Cold of Flu in the past 2 weeks, No New Medical Problems, No Changes in Medication and No Patient answered all questions The patient has been examined within 24 hours of the surgical procedure. The History & Physical has been completed within 30 days and I have reviewed it.: Yes Section B - Complete if H&P > 30 days Chief Complaint: Lateral epicondylitis, right elbow Allergies: Allergies Allergy/AdvReac Type Severity Reaction Status Date / Time bee pollen [BEE STINGS] Allergy Unknown SWELL UP Verified 02/09/24 12:33 Plan I have reviewed the history and physical and performed a pertinent physical examination on my patient. No changes have occurred unless specified. Time Spent With Patient Time: Total time managing care of this patient today ____ minutes.
--- NOTE | 2024-02-10 08:41 | P.BOP_ITS ---
Brief Operative Note Date of Service: 02/10/24 Pre-op diagnosis: Right lateral epicondylitis Post-op diagnosis: same Procedure: Right elbow debridement of lateral epicondyle Surgeon: Jesus Shrestha MD Anesthesia: GETA Was an Nurses' Association Executive Director used for this Procedure?: No Nurses' Association Executive Director: Juliana Smith Estimated blood loss (mL): 2 Tourniquet time (min): 26 IV fluids (mL): 600 Pathology: other Condition: stable Disposition: PACU Assessment and Plan (No Qualifiers) Assessment and Plan (1) Right lateral epicondylitis: Status: Acute Plan: Gentle ROM as tolerated when splint removed at post op. No lifting and no resistance. Initiate gentle resistance with OT at 6 weeks post op
--- NOTE | 2024-02-10 11:01 | P.OP_ITS ---
Operative Note Operative Note Date of Service: 02/10/24 Narrative: Date of Service: 02/10/24 Pre-op diagnosis: Right lateral epicondylitis Post-op diagnosis: same Procedure: Right elbow debridement of lateral epicondyle Surgeon: Jesus Shrestha MD Anesthesia: GETA Was an Lining Ironer used for this Procedure?: No Lining Ironer: Juliana Smith Estimated blood loss (mL): 2 Tourniquet time (min): 26 IV fluids (mL): 600 Pathology: other Condition: stable Disposition: PACU Patient was brought to the operating room and placed supine on the surgical table. He was prepped and draped in standard sterile fashion and a time out was called to identify proper site, proper procedure and IV antibiotics per weight were administered. I began by insufflating the tourniquet to 250 and made a standard anterolateral incision just anterior to the lateral epicondyle obliquely from P to A. Littler scissors were used to dissect down to the extensor aponeurosis and the deep fascia over the ECRL. An deep incision was made from the anterior tip of the lateral epicondyle distally along the posterior border of the ECRL fascia. The ECRL was then retracted anteriorly and the fibers of the ECRB were identified. This was tendonic in appearance and I excised ~ 75% of the ECRB tendon. I inspected the underside of the ECRL and there was no additional tendonotic tissue. I debrided the lateral epicondyle down to bleeding bone and then irrigated copiously. I then closed the fascia with 0 Vicryl and then the sub Q with simple 3.0 Vicryl and then added a V-lock, skin glue and steri strips. I injected ~ 10 ml of 1/2 plain marcaine along the incision and deep along the lateral epicondyle. The patient was palced in a sling and a lateral bolster splint, extubated and brought to the recovery room in stable condition. There were no known complications.
== END 2024-02-10 10:07 | disposition home or self-care (01) ==
PROVIDERS: Visit Provider Orthopaedic Surgery
PROC: (CPT 24358; principal; 2024-02-10 07:30)
DX: M77.11 Lateral epicondylitis, right elbow (principal); Z79.899 Other long term (current) drug therapy; Z98.890 Other specified postprocedural states; F17.210 Nicotine dependence, cigarettes, uncomplicated
CPT/HCPCS: 24358; 88304; 88311; J0131; J0690; J1100; J1170; J2250; J2405; J2704; J2795; J3010

== ENCOUNTER → 2024-02-10 05:44 | Outpatient (BNV) | payer OTHER, SELFPAY | PROVIDERS: Visit Provider Orthopaedic Surgery | DX: M77.11 Lateral epicondylitis, right elbow (principal) | CPT/HCPCS: 24358 ==

== ENCOUNTER → 2024-02-15 08:10 | Outpatient (BNVA) | payer OTHER, SELFPAY | PROVIDERS: Visit Provider Internal Medicine | DX: M77.11 Lateral epicondylitis, right elbow (principal) | CPT/HCPCS: 99213 ==

== ENCOUNTER 2024-02-18 13:59 | Outpatient (AMB) | payer OTHER, SELFPAY ==
--- NOTE | 2024-02-18 14:23 | A.OFFVIS_ITS ---
Intake Visit Reasons: PO RT epicondylitis debridement 02/10/24 NE Intake Note: Black is a 53 year old right hand dominant male who presents today for a post op appointment s/p RT epicondylitis debridement 02/10/24 NE. He states he is having stiffness and soreness. Patient mentions he is doing well. Allergies bee pollen [BEE STINGS] Allergy (Unknown, Verified 02/09/24 12:33) SWELL UP HPI HPI PO RT epicondylitis debridement 02/10/24 NE: Details: 53-year-old male who presents in the office today 8 days status post right elbow debridement of lateral epicondyle, which was performed on 02/10/[address] Shrestha. ? ? While in the office today, the patient reports he is doing well. He does, however, reports some stiffness and soreness in the right elbow. ? 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 No surrounding erythema or drainage. No signs of infection. Lacking about 10 degrees of full extension. Able to perform full pronation, supination, and flexion. NVI. Assessment & Plan Assessment & Plan (1) Right lateral epicondylitis: Code(s): M77.11 - Lateral epicondylitis, right elbow Category: Medical Plan Mr. Almaraz is a 53-year-old male who presents in the office today 8 days status post right elbow debridement of lateral epicondyle, which was performed on 02/10/[address] Shrestha. ? ? While in the office today, the patient reports he is doing well. He does, however, reports some stiffness and soreness in the right elbow.? ? The patient will continue to work on gentle ROM. He should avoid heavy lifting. Steri-stripes were reapplied in the office today. He can shower without covering the area. Follow-up will be in four weeks, or sooner if needed. ? Patient Instructions: Scribed by Justine Michael medical payment poster, for Juliana Smith PA-C on 02/18/2024 at 2:28 pm, EST.? Coding Level of Care Code Global (31899) Diagnoses Right lateral epicondylitis M77.11
== END 2024-02-18 14:42 | disposition home or self-care (01) ==
PROVIDERS: PCP Internal Medicine; Visit Provider Physician Assistant
DX: M77.11 Lateral epicondylitis, right elbow (principal)
CPT/HCPCS: 99024

== ENCOUNTER → 2024-02-18 13:59 | Outpatient (BNVA) | payer OTHER, SELFPAY | PROVIDERS: PCP Internal Medicine; Visit Provider Physician Assistant | DX: Z47.89 Encounter for other orthopedic aftercare (principal) | CPT/HCPCS: 99212 ==

== ENCOUNTER → 2024-03-09 07:55 | Outpatient (BNVA) | payer OTHER, SELFPAY | PROVIDERS: PCP Internal Medicine; Visit Provider Internal Medicine | DX: M77.11 Lateral epicondylitis, right elbow (principal) | CPT/HCPCS: 99213 ==

== ENCOUNTER 2024-03-17 13:26 | Outpatient (AMB) | payer OTHER, SELFPAY ==
--- NOTE | 2024-03-17 13:36 | A.OFFVIS_ITS ---
Intake Visit Reasons: PO RT epicondylitis debridement 02/10/24 NE Intake Note: Black is a 53 year old right hand dominant male who presents today for a post op appointment s/p RT epicondylitis debridement 02/10/24 NE. Patient reports he is doing well, he has pain and stiffnes that radiates from his elbow down to his knuckles. He has no other concerns. Allergies bee pollen [BEE STINGS] Allergy (Unknown, Verified 03/17/24 13:39) SWELL UP HPI HPI PO RT epicondylitis debridement 02/10/24 NE: Details: 53-year-old right hand dominant male who presents in the office today 5 weeks s tatus post right elbow debridement of lateral epicondyle, which was performed on 02/10/[address] Shrestha. I last saw the patient in the office on 02/18/24 when he was to continue to work on gentle ROM and was instructed to avoid heavy lifting. ? ? While in the office today, the patient reports he is doing well. He does reports pain and stiffness that radiates from his right elbow to his knuckles. He expresses no other concerns today. ? 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 Able to perform full flexion and extension but does have pain with the last 10 degrees of flexion. Reports stiffness along the extensor tendons in the little and ring fingers. Unequal remote inpatient coder strength with decreased remote inpatient coder strength on the right. NVI.? Assessment & Plan Assessment & Plan (1) Right lateral epicondylitis: Code(s): M77.11 - Lateral epicondylitis, right elbow Category: Medical Plan Mr. Almaraz is a 53-year-old right hand dominant male who presents in the office today 5 weeks status post right elbow debridement of lateral epicondyle, which was performed on 02/10/[address] Shrestha. I last saw the patient in the office on 02/18/24 when he was to continue to work on gentle ROM and was instructed to avoid heavy lifting. ? ? While in the office today, the patient reports he is doing well. He does reports pain and stiffness that radiates from his right elbow to his knuckles. He expresses no other concerns today.? ? The patient will be referred to occupational therapy. He will remain out of work until his follow-up. Follow-up will be in four weeks with Dr. Shrestha, or sooner if needed. ? Patient Instructions: Scribed by Justine Michael medical laboratory manager, for Juliana Smith PA-C on 03/17/2024 at 1:27 pm, EST.? Coding Level of Care Code Global (47070) Diagnoses Right lateral epicondylitis M77.11
== END 2024-03-17 13:51 | disposition home or self-care (01) ==
PROVIDERS: PCP Internal Medicine; Visit Provider Physician Assistant
DX: M77.11 Lateral epicondylitis, right elbow (principal)
CPT/HCPCS: 99024

== ENCOUNTER → 2024-03-17 13:26 | Outpatient (BNVA) | payer OTHER, SELFPAY | PROVIDERS: PCP Internal Medicine; Visit Provider Physician Assistant | DX: M77.11 Lateral epicondylitis, right elbow (principal); Z98.890 Other specified postprocedural states | CPT/HCPCS: 99212 ==

== ENCOUNTER 2024-04-14 08:29 | Outpatient (AMB) | payer OTHER, SELFPAY ==
[2024-04-14 08:30] VITALS: BMI 31.2
--- NOTE | 2024-04-14 08:30 | MHC.OFFVIS ---
Vital Signs 04/14/24 08:30 Height 6 ft 3 in Weight 250 lb BMI 31.2 Intake Visit Reasons: PO RT epicondylitis debridement 02/10/24 NE Intake Note: Cheko is a 53 year old right hand dominant male who presents today for a post operative appointment s/p Right lateral epicondylitis debridement 02/10/24. Patient wa instructed to work on gentle ROM and engage in no heavy lifting. He remains out of work at this time. He continues to work with OT which is going well, he has some mild soreness and a burning pain in the volar aspect of the forearm. This is being worked on in OT, but he has no additional concerns at this time. Allergies bee pollen [BEE STINGS] Allergy (Unknown, Verified 04/14/24 08:32) SWELL UP HPI HPI PO RT epicondylitis debridement 02/10/24 NE: Details: Cheko is a 53 year old right hand dominant male who presents today for a post operative appointment s/p Right lateral epicondylitis debridement 02/10/24. Patient wa instructed to work on gentle ROM and engage in no heavy lifting. He remains out of work at this time. He continues to work with OT which is going well, he has some mild soreness and an occasional burning pain in the volar aspect of the forearm. This is being worked on in OT, and he has no additional concerns at this time. He is currently out of work. 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 Continue PT. No work at this time. F/u 6 weeks Coding Level of Care Code Global (86707) Diagnoses Right lateral epicondylitis M77.11
== END 2024-04-14 08:46 | disposition home or self-care (01) ==
PROVIDERS: PCP Internal Medicine; Visit Provider Orthopaedic Surgery
DX: M77.11 Lateral epicondylitis, right elbow (principal)
CPT/HCPCS: 99024

== ENCOUNTER → 2024-04-14 08:29 | Outpatient (BNVA) | payer OTHER, SELFPAY | PROVIDERS: PCP Internal Medicine; Visit Provider Orthopaedic Surgery | DX: M77.11 Lateral epicondylitis, right elbow (principal); Z98.890 Other specified postprocedural states | CPT/HCPCS: 99212 ==

== ENCOUNTER 2024-05-23 09:52 | Outpatient (RCR) | payer OTHER, SELFPAY ==
--- NOTE | 2024-04-04 11:28 | MHC.OT.EP ---
[address] [phone] Occupational Therapy Plan of Care Patient Name: Cheko Almaraz Date of Evaluation: 04/04/24 Diagnosis: Post-op Right Epicondylitis Debridement Pain Location: Mostly pain free at rest Sharp pain w/ quick or heavy movements Pain Score: 4 Pain Scale Used: Numeric (0 - 10) Aggravating Factors: Reaching, gripping Alleviating Factors: Nothing used, pain is spontaneous and no need for prolonged pain management Assessment: 53 yo male w/ hx of right lateral epicondylitis, was seen for course of OT and reportedly had some relief, but persistent pain and referred self back to ortho. He tried PRP treatment w/ some relief and healing, but eventually opted for surgical debridement. Now post-op debridement 02/10/24 w/ Dr Shrestha, referred to therapy due to some persistent pain and tightness. On assessment today, surgical incision well healed and he has good upper extremity range, some feeling of tightness w/ end range elbow flexion and extension. He has decreased distribution estimator strength compared to left, but still functional (R 80lb L 115lb). He reports occasional tinging over right radial wrist w/ rotational movements but not consistent, and he has weakness in right small finger, but not limiting general motor control. I anticipate he will do well w/ OT for strengthening and continued pain management. Frequency and Duration: The patient will be seen 2x/wk for 6 weeks Short Term Goals: Ind w/ self massage Ind w. FMC challenges at home Ind w/ HEP Full elbow flex/ext AROM w/ ease Moose Hunter Goals: Right gross grasp 100lb Ind w/ progression of strengthening program Pt to report ease of right radial wrist sensory changes QuickDASH score <40pts Treatment Plan: Therapeutic Exercise Therapeutic Activity Home Exercise Program Patient Education Desensitization/Sensory Re-ed Edema Control ADL Training Ultrasound MHP Cold Packs Soft Tissue Mobilization Kinesiotaping Electronically Signed By: Nicole Sarabia OTR/L CHT Please Sign and return to therapist. Thank you once again for your referral.
--- NOTE | 2024-05-23 11:41 | MHC.OT.DC ---
[address] [phone] F: [phone] Occupational Therapy Discharge Note Patient Name: Cheko Almaraz Provider: Juliana Smith PA-C Diagnosis: Post-op Right Epicondylitis Debridement Date of Surgery: 02/10/24 Date of Evaluation: 04/04/24 Date of Discharge: 05/23/24 Treatments to Date: 12 Discharge Status: Achieved Goals Improved Function Independent with HEP Discharge Summary: Cheko is >3 months post-op right lateral elbow debridement. 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 He has good follow through w/ HEP and good understanding of joint protection and activity modification techniques, no further Ot services need at this time, he is Ind w/ self management. Electronically Signed By: Nicole Sarabia OTR/Cheryle CHT Reviewed/agree with student documentation: Therapist: Please Sign and return to therapist, thank you for your referral.
== END 2024-05-23 11:42 | disposition home or self-care (01) ==
LOC: HO.OT 09:52
PROVIDERS: PCP Internal Medicine; Visit Provider Physician Assistant
DX: M77.11 Lateral epicondylitis, right elbow (principal)
CPT/HCPCS: 97033; 97110; 97140; 97165

== ENCOUNTER 2024-05-26 08:08 | Outpatient (AMB) | payer OTHER, SELFPAY ==
--- NOTE | 2024-05-26 08:27 | MHC.OFFVIS ---
Intake Visit Reasons: OV RT epicondylitis debridement 02/10/24 NE Intake Note: Cheko is a 53 year old right hand dominant male who presents today for a post operative appointment s/p Right lateral epicondylitis debridement 02/10/24. Patient reports that he is continuing to have mild pain, but has increased pain with repetitive motion, weighted activity, full extension and full flexion. He feels a popping on the lateral aspect of the right elbow that has been present for about 2 weeks. Has completed OT, but still has weakness of the right hand. He remains out of work at this time. Allergies bee pollen [BEE STINGS] Allergy (Unknown, Verified 05/26/24 08:32) SWELL UP HPI HPI OV RT epicondylitis debridement 02/10/24 NE: Details: Cheko is a 53 year old right hand dominant male who presents today for a post operative appointment s/p Right lateral epicondylitis debridement 02/10/24. Patient reports that he is continuing to have mild pain, but has increased pain with repetitive motion, weighted activity, full extension and full flexion. He feels a popping on the lateral aspect of the right elbow that has been present for about 2 weeks. Has completed OT, but still has weakness of the right hand. He remains out of work at this time. 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 Minimal pain with resisted wrist extension. Assessment & Plan Assessment & Plan (1) Right lateral epicondylitis: Code(s): M77.11 - Lateral epicondylitis, right elbow Category: Medical Plan: 53-year-old who is status post epicondylitis surgery for his right elbow. Overall his motion is good but still with intermittent pain and feels like he can not lift heavy objects. I recommend no lifting over 10 lb. I recommend he abstain from work at this time. Follow up in 8 weeks. Coding Level of Care Code Est Pt Level 3 (21985) Diagnoses Right lateral epicondylitis M77.11
== END 2024-05-26 09:05 | disposition home or self-care (01) ==
PROVIDERS: PCP Internal Medicine; Visit Provider Orthopaedic Surgery
DX: M77.11 Lateral epicondylitis, right elbow (principal)
CPT/HCPCS: 99213

== ENCOUNTER → 2024-05-26 08:08 | Outpatient (BNVA) | payer OTHER, SELFPAY | PROVIDERS: PCP Internal Medicine; Visit Provider Orthopaedic Surgery | DX: Z47.89 Encounter for other orthopedic aftercare (principal) | CPT/HCPCS: 99212 ==

== ENCOUNTER 2024-07-11 12:05 | Outpatient (AMB) | payer OTHER, SELFPAY ==
--- NOTE | 2024-07-11 12:12 | MHC.OFFVIS ---
Vital Signs 07/11/24 12:14 Height 6 ft 3 in Weight 250 lb BMI 31.2 Intake Visit Reasons: OV-OV RT epicondylitis debridement 02/10/24 NE-F/U Intake Note: Cheko is a 53 year old right hand dominant male who presents today for a post operative appointment s/p Right lateral epicondylitis debridement 02/10/24. He remains out of work at this time and was instructed to abstain from lifting anything over 10lbs. Patient reports that he has been working with OT, he has been experiencing a sharp/burning pain that shoots from the elbow down the arm. He cannot recall any injury that would have initiated these symptoms PRP Injection: 07/24/2023 & 10/16/23 Cortisone Injection: 03/30/2023 Allergies bee pollen [BEE STINGS] Allergy (Unknown, Verified 05/26/24 08:32) SWELL UP HPI HPI OV-OV RT epicondylitis debridement 02/10/24 NE-F/U: Details: Cheko is a 53 year old right hand dominant male who presents today for a post operative appointment s/p Right lateral epicondylitis debridement 02/10/24. He remains out of work at this time and was instructed to abstain from lifting anything over 10lbs. Patient reports that he has been working with OT, he has been experiencing a sharp/burning pain that shoots from the elbow down the arm. 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 Full range of motion. Mildly positive resisted wrist extension. Minimal pain with resisted extension long finger right hand. Assessment & Plan Assessment & Plan (1) Right lateral epicondylitis: Code(s): M77.11 - Lateral epicondylitis, right elbow Category: Medical Plan: Refractory lateral epicondylitis right elbow. 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 He has just restarted physical therapy and he states this is helping him. I would like to see him back in 6 weeks and at that point I suspect we will be at maximum medical improvement. Continue current work restrictions. Coding Level of Care Code Est Pt Level 3 (51161) Diagnoses Right lateral epicondylitis M77.11
[2024-07-11 12:14] VITALS: BMI 31.2
== END 2024-07-11 12:40 | disposition home or self-care (01) ==
PROVIDERS: PCP Internal Medicine; Visit Provider Orthopaedic Surgery
DX: M77.11 Lateral epicondylitis, right elbow (principal)
CPT/HCPCS: 99213

== ENCOUNTER → 2024-07-11 12:05 | Outpatient (BNVA) | payer OTHER, SELFPAY | PROVIDERS: PCP Internal Medicine; Visit Provider Orthopaedic Surgery | DX: M77.11 Lateral epicondylitis, right elbow (principal); Z98.890 Other specified postprocedural states | CPT/HCPCS: 99212 ==

== ENCOUNTER 2024-07-13 10:11 | Emergency (ER) | payer OTHER, SELFPAY ==
[2024-07-13 10:31] VITALS: BP 151/97; PULSE 100; RESP 16; TEMP 36.4; O2SAT 96; BMI 37.6
--- NOTE | 2024-07-13 10:54 | ED.GENADULT ---
HPI - General Adult General Chief complaint: Wound/Laceration Stated complaint: Boil Under R Arm Back Time Seen by Provider: 07/13/24 10:45 Source: patient, RN notes reviewed and old records reviewed Mode of arrival: ambulatory Limitations: no limitations History of Present Illness ED Provider: Kvng [facility] narrative: Patient is a 53-year-old male presenting to the emergency department with complaint abscess to bilateral axilla. States that he noted an area 1st to right axilla which he believes was an ingrown hair. States that area has since resolved, but now has a larger abscess closer to his back. Also noted what appears to be an ingrown hair to left axilla. States last night he attempted to drain the abscess on the right side with a needle and had some purulent drainage. Denies fevers, chills, body aches. He is not diabetic. MD complaint: Abscess Onset (ago): day(s) Associated symptoms: denies other symptoms Related Data Home Medications ?Medication ?Instructions ?Recorded ?Confirmed omeprazole 20 mg capsule,delayed 20 mg PO DAILY 09/25/22 10/16/23 release loratadine 10 mg tablet (Claritin) 10 mg PO DAILY 04/14/24 Previous Rx's ?Medication ?Instructions ?Recorded cephalexin 500 mg capsule 500 mg PO QID #28 caps 07/13/24 Allergies Allergy/AdvReac Type Severity Reaction Status Date / Time bee pollen [BEE STINGS] Allergy Unknown SWELL UP Verified 07/13/24 10:34 Review of Systems Review of Systems: As per HPI. 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 Blood pressure normal. Heart rate normal. Respiratory rate normal. Temperature normal. Oxygen saturation normal. Const General: cooperative, healthy appearing and no acute distress Orientation/consciousness: oriented to person, oriented to place, oriented to time and patient oriented x3 Limitations: no limitations HENMT Head: Yes normocephalic and Yes atraumatic Ears: external ears normal General nose exam: Normal external nose present Face and sinus: Yes face symmetric Mouth: oropharynx normal and moist mucous membranes Throat: Yes uvula midline Eyes Pupils: Equal, round and reactive pupils present Neck Neck: Yes normal visual inspection and Yes supple Resp Effort & Inspection: normal respiratory effort and able to speak in complete sentences Auscultation: clear to auscultation bilaterally Cardio Rate: regular rate Rhythm: regular rhythm Heart sounds: S1 normal heart sound present and S2 normal heart sound present GI Palpation (GI): Soft to palpation and nontender Auscultation: normoactive bowel sounds General: Yes no CVA tenderness Back/Spine/Pelvis Back: no CVA tenderness Skin Other: multiple areas of folliculitis to bilateral axilla General skin exam: elasticity normal and turgor normal Full body images: 1. 12cm x 5 cm area of erythema, induration, with central opening Neuro General: oriented to person, oriented to place, oriented to time, patient oriented x3, moves all extremities, no focal motor deficits and CN's II-XI intact bilaterally Cranial nerves: Yes Equal, round and reactive pupils present Cognition (Neuro): normal cognition Extrem General: Yes full ROM, Yes no pedal edema and Yes no calf tenderness Psych Mental Status: mental status grossly normal Affect: normal affect Thought process: Normal thought process present Medical Decision Making Medical Decision Making MDM Narrative: Patient is a 53-year-old male presenting to the emergency department with complaint abscess to bilateral axilla. On exam patient is awake, A+Ox3, VS WNL, afebrile, normal neurological exam without focal deficits, physical exam findings as above. Given reported symptoms and physical exam findings, initial differential includes but is not limited to abscess, cellulitis. Large area of erythema to right axilla/back is not fluctuant, not able to perform incision and drainage at this time. Will start patient on antibiotics, also advised warm compresses. Discussed with patient that he should not attempt to drain these abscesses at home as this can create a more significant infection or caused bacteremia. Patient verbalized understanding of this. Return precautions discussed at bedside. Patient verbalized understanding of and agreement with plan. Differential Diagnosis Differential Diagnoses: The differential diagnosis associated with the presentation includes As per [facility] External Record Review External record reviewed: Inpatient record, Office record and Outpatient record Prescription Management I considered prescription management with: Antibiotic Discharge Plan Discharge Clinical Impression: Abscess of axilla, right Patient Disposition: Home, Self-Care Instructions: Abscess (ED), Abscess Follow-up (ED), Abscess Incision and Drainage (DC) Additional Instructions: You were evaluated in the ER for an abscess. Please keep the area surrounding the abscess clean and dry. You were given a prescription for antibiotics, please take the antibiotics as directed for the full course of the medication. You should perform a skin check of the area daily. If the abscess progresses you may have to have the abscess incised and drained. You can use Tylenol or ibuprofen per package directions as needed for pain. If necessary, you can alternate these medications so that you take one medication every 3 hours. For instance, at noon take ibuprofen, then at 3:00 p.m. take Tylenol, then at 6:00 p.m. take ibuprofen. Please schedule an appointment with your primary care physician as soon as possible for follow-up. Return to the emergency department if you experience fevers greater than 100.4? F, increased in area of redness or swelling, increasing amount of discharge from the area, increased tenderness around the area, or any other concerning symptoms. Prescriptions: New cephalexin 500 mg capsule 500 mg PO QID Qty: 28 0RF No Action omeprazole 20 mg capsule,delayed release(DR/EC) 20 mg PO DAILY loratadine [Claritin] 10 mg tablet 10 mg PO DAILY Print Language: Norwegian
[2024-07-13 13:25] VITALS: BP 148/96; PULSE 98; RESP 16; TEMP 36.7
== END 2024-07-13 13:26 | disposition home or self-care (01) ==
PROVIDERS: Emergency Provider Student in an Organized Health Care Education/Training Program
DX: L02.411 Cutaneous abscess of right axilla (principal); F17.210 Nicotine dependence, cigarettes, uncomplicated; Z79.899 Other long term (current) drug therapy
CPT/HCPCS: 99282; 99283

== ENCOUNTER 2024-08-01 07:56 | Outpatient (RCR) | payer OTHER, SELFPAY ==
--- NOTE | 2024-07-08 08:59 | MHC.OT.EP ---
[address] [phone] Occupational Therapy Plan of Care Patient Name: Cheko Almaraz Date of Evaluation: 07/08/24 Diagnosis: Post-op Right Lateral Epicondyle Debridement Pain Location: 2/10 resting pain in right lateral elbow 10/10 sharp pain w/ heavy use Tenderness over dorsal WAD at radial tunnel, tenderness over mid volar forearm Pain Score: 2 Pain Scale Used: Numeric (0 - 10) Aggravating Factors: Lifting, gripping Alleviating Factors: Heat, hot showers Assessment: 53 yo male w/ hx of right lateral epicondylitis, was seen for course of OT and reportedly had some relief, but persistent pain and referred self back to ortho. He tried PRP treatment w/ some relief and healing, but eventually opted for surgical debridement 02/10/24. He was seen for course of occupational therapy from March to May. He was discharged at that time with good range and strength, but still pain with heavy lifting and repetitive activities. He has now been referred back to OT to address elbow pain. On assessment today, he has full elbow and wrist range, slight weakness in right gross grasp compered to non-dominant left (R 80lb L 90lb) but primary complaint is intermittent high sharp pain in right lateral epicondyle still w/ forceful tasks (opening jars, lifting moderately heavy grocery bags) and occasional numbness radiating forearm to dorsal thumb. We will continue OT services to address right elbow pain and general muscle imbalance with nerve compression. Frequency and Duration: The patient will be seen 2x/wk for 4 weeks Short Term Goals: Ind w/ self massage Ind w/ HEP Good follow through w/ joint protection/activity protection Channel Opener Goals: Right gross grasp 90lb Ind w/ progression of strengthening program Pt to report ease of right radial wrist sensory changes QuickDASH score <25lb Treatment Plan: Therapeutic Exercise Therapeutic Activity Home Exercise Program Patient Education Edema Control ADL Training Ultrasound Iontophoresis MHP Cold Packs Soft Tissue Mobilization Kinesiotaping Electronically Signed By: Nicole Sarabia OTR/L CHT Please Sign and return to therapist. Thank you once again for your referral.
--- NOTE | 2024-08-02 10:48 | MHC.OT.DC ---
[address] [phone] F: [phone] Occupational Therapy Discharge Note Patient Name: Cheko Almaraz Provider: Dr Jesus Shrestha Diagnosis: Post-op Right Lateral Epicondyle Debridement Date of Surgery: 02/10/24 Date of Evaluation: 07/08/24 Date of Discharge: 08/01/24 Treatments to Date: 8 Discharge Status: Improved Function Independent with HEP Discharge Summary: Lucy was referred to OT post-op right lateral epicondyle debridement. He is doing well overall w/ improvements in forearm/wrist sensory changes and has been progressing w/ strengthening. He still has occasional mild sharp pain in right lateral elbow, mostly w/ heavy lifting. He has good follow through w/ HEP and joint protection, currently plateaued in therapy and will continue home program. Electronically Signed By: SHANDA Kern/Cheryle HARDINGT Reviewed/agree with student documentation: Therapist: Please Sign and return to therapist, thank you for your referral.
== END 2024-08-02 10:49 | disposition home or self-care (01) ==
LOC: HO.OT 07:56
PROVIDERS: PCP Internal Medicine; Visit Provider Orthopaedic Surgery
DX: M77.11 Lateral epicondylitis, right elbow (principal)
CPT/HCPCS: 97110; 97140; 97165

== ENCOUNTER → 2024-08-02 10:51 | Outpatient (RCR) | payer OTHER, SELFPAY ==
--- NOTE | 2022-09-22 16:31 | MHC.OT.EP ---
[address] [phone] Occupational Therapy Plan of Care Patient Name: Cheko Almaraz Date of Evaluation: 09/22/22 Diagnosis: Right tennis elbow and hand tendinitis Pain Location: 2-8/10 Right lateral elbow pain greater in the am. Pain Score: 8 Pain Scale Used: Numeric (0 - 10) Aggravating Factors: Sleeping, gripping , reaching and gripping Alleviating Factors: Avoiding use Assessment: Pt is a 52 yo male 2 wks s/p right elbow pain due to repetitive strain with work tasks at increased work hours by ~15 hrs a week per pt report . Pt also with S+S of mild cubital tunnel sx. Pt reports improving with rest and anxious to RTW. Pt will benefit from OT to address epicondylitis and mild ulnar nerve sx. He is also being seen by PT for shoulder pain due to same injury Frequency and Duration: The patient will be seen 2x wk x 4 wks Short Term Goals: Demo compliance with protection techniques for right elbow and hand sx . 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 Thank you once again for your referral.
--- NOTE | 2022-11-05 08:40 | MHC.OT.DC ---
[address] [phone] F: [phone] Occupational Therapy Discharge Note Patient Name: Cheko Almaraz Provider: Aldair Orona Diagnosis: Right tennis elbow and hand tendinitis Date of Surgery: Date of Evaluation: 09/22/22 Date of Discharge: 11/05/22 Treatments to Date: 11 Cancellations to Date: No Shows to Date: Discharge Status: Achieved Goals Improved Function Independent with HEP Discharge Summary: Still w/occasional low/moderate pain with gripping with elbow extension He is tolerating moderate level daily activities with use of a CFB as needed. He reports that somedays it's really good. Paresthesia's resolved. [employer] strength WNL Pt is independent with his HEP. I anticipate continued improvement in lateral elbow pain with his HEP and anticipated change in work tasks when he returns to work in six weeks Goals met. Pt to return to work in 6 weeks to new position avoiding repetitive pulling and holding. Electronically Signed By: Sandy Forte OT CHT CLT Reviewed/agree with student documentation: N/A Therapist: Please Sign and return to therapist, thank you for your referral.
== END | disposition home or self-care (01) ==
LOC: HO.OT 09-22 14:41
PROVIDERS: PCP Internal Medicine; Visit Provider Internal Medicine
DX: M77.11 Lateral epicondylitis, right elbow (principal); M77.8 Other enthesopathies, not elsewhere classified
CPT/HCPCS: 97033; 97035; 97110; 97140; 97165; 97530

== ENCOUNTER 2024-08-29 09:06 | Outpatient (AMB) | payer OTHER, SELFPAY ==
--- NOTE | 2024-08-29 09:14 | MHC.OFFVIS ---
Intake Visit Reasons: OV RT epicondylitis debridement 02/10/24 NE-F/U Intake Note: Cheko is a 53 year old right hand dominant male who presents today for a follow up s/p Right lateral epicondylitis debridement 02/10/24. He remains out of work at this time, it was anticipated that he would reach MMI by this appointment. Allergies bee pollen [BEE STINGS] Allergy (Unknown, Verified 07/13/24 10:34) SWELL UP HPI HPI OV RT epicondylitis debridement 02/10/24 NE-F/U: Details: Cheko is a 53 year old right hand dominant male who presents today for a follow up s/p Right lateral epicondylitis debridement 02/10/24. He remains out of work at this time, it was anticipated that he would reach MMI by this appointment. He continues to describe difficulty with grasping and lifting activities. He has 2 complaints. One is pain over the lateral epicondyle with heavy grasping and occasionally with rotating or twisting motions. The other complaint is intermittent numbness over the radial aspect of the wrist. He initially started feeling this after the PRP injections waxed and waned but he still has discomfort and occasional pins and needles over his radial forearm. 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 He has undergone physical therapy and has a counterforce brace. He has had 2 PRP injections and a debridement of his ECRB. He has been doing pretty well at home in terms of ADLs but still has difficulty with heavy grasping and lifting. In addition he describes intermittent numbness and tingling (?pins and needles?) in his dorsal thumb, wrist and forearm. I think he has reached MMI for his lateral epicondylitis. He may engage in daily activities without restriction but I do not think he is able to engage in heavy lifting or grasping on a daily basis for work. I explained this to him and he understands. (2) Radial nerve irritation: Code(s): G56.30 - Lesion of radial nerve, unspecified upper limb Category: Medical Plan: His radial nerve continues to be a issue for him. It is unclear the etiology as this does not appear to be a complication from treatment and I recommend a EMG/NCV. Once I get the results from that I can send him to a hand surgeon if needed. Coding Level of Care Code Est Pt Level 4 (81076) Diagnoses Right lateral epicondylitis M77.11 Radial nerve irritation G56.30
--- OUTSIDE RECORDS SUMMARY | 2024-08-29 09:43 | XMS_ITS | Clinical Summary ---
Author Organization [facility] Address [address] [place] [address] Care Team Providers Care Lay Out Maker Name Role Phone Mick Calvillo MD Primary Care Provider [phone] Allergies Active Allergy Reactions Criticality Noted Date Comments Bee Venom Protein (Honey Bee) Anaphylaxis High 06/22 Bee Stings Medications atorvastatin (LIPITOR) 20 mg tablet TAKE 1 TABLET BY MOUTH EVERY DAY 04/24/2023 Active omeprazole (PriLOSEC) [address] capsule TAKE 1 CAPSULE BY MOUTH EVERY DAY 03/27/2023 Active sildenafiL (VIAGRA) 100 mg tablet Take 0.5 Tabs by mouth as needed for Erectile Dysfunction. 07/09/2020 Active FA/mv,Ca,iron,m in/lycopene/lut (MULTIVITAL ORAL) Take by mouth. Active Active Problems Problem Noted Date Diagnosed Date Colon polyps 09/12/2020 Overview (06/13/2024): CN_2020 Rectal polyp 09/12/2020 Reflux esophagitis 09/12/2020 Overview (06/13/2024): Upper endoscopy-08/26-LA grade B reflux esophagitis, benign-appearing esophageal stenosis, gastritis with hemorrhage, biopsied, small hiatal hernia-PPI to continue. Allergic rhinitis 06/22/2017 DJD (degenerative joint disease) 06/22/2017 Overview (06/13/2024): knees Gastritis 06/22/2017 Pure hypercholesterolemia 06/22/2017 Overview (06/13/2024): Ascvd 3.8%-10% History of substance abuse 05/27/2017 Overview (06/13/2024): Marijuana, alcohol, cocaine Immunizations Name Administration Dates Next Due Hepatitis A Adult (Havrix; Vaqta) 19yo and older 01/19/2014,07/21/2013 Hepatitis B (Thpwdxn-V-Xuhum , Recombivax HB-Adult) 19yo and older 01/19/2014,07/21/2013 Tdap Tetanus diptheria acell ular pertussis (Boostrix; Adacel) 7yo and older 05/03/2014 Surgical History Surgery Date Site/Laterality Comments OTHER SURGICAL HISTORY PROCEDURE: DENIES PREVIOUS SURGERY Medical History Medical History Date Comments Allergic rhinitis 06/22/2017 DX:Allergic rh initis DJD (degenerative joint disease) 06/22/2017 DX:DJD (degenerative joint disease); COMMENT: knees Gastritis 06/22/2017 DX:Gastritis History of substance abuse (CMS/HCC) 05/27/2017 DX:History of substance abuse (HCC); COMMENT: Marijuana, alcohol, cocaine Pure hypercholesterolemia 06/22/2017 DX:Pur e hypercholesterolemia Reflux esophagitis 09/12/2020 DX:Reflux eso phagitis Colon polyps 09/12/2020 DX:Colon polyps; COMMENT: _2020 Rectal polyp 09/12/2020 DX:Rectal polyp Family History Medical History Relation Name Comments Colon polyps Brother 1 No Known Problems Brother 2 Hypertension Father CAD, pacemaker, ? CA Heart attack Maternal Grandfather Other cancer Maternal Grandmother abdomi nal , cataract/glaucoma, HTN Hypertension Mother No Known Problems Paternal Grandfather Lung cancer Paternal Grandmother No Known Problems Son Heart attack Uncle Relation Name Status Comments Brother 1 Alive Brother 2 Alive Father Maternal Grandfather Maternal Grandmother Mother Alive Paternal Grandfather Paternal Grandmother Son Alive Uncle Social History Tobacco Use Types Packs/Day Years Used Date Smoking Tobacco: Every Day Cigarettes Smokeless Tobacco: Never Alcohol Use Standard Drinks/Week Comments Yes 0 (1 standard drink = 0.6 oz pur e alcohol) Sex and Gender Information Value Date Recorded Sex Assigned at Not on file Legal Sex Male 11:20 PM EST Gender Identity Not on file Sexual Orientation Not on file Obstetrics History Last Filed Vital Signs Vital Sign Reading Time Taken Comments Blood Pressure 128/80 09/12/2022 11:26 AM EST Pulse 78 09/12/2022 11:26 AM EST Temperature - - Respiratory Rate - - Oxygen Saturation - - Inhaled Oxygen Concentration - - Weight 110 kg (242 lb) 09/12/2022 11:26 AM EST Height 190.5 cm (6' 3 ) 09/12/2022 11:26 AM EST Body Mass Index 30.25 09/12/2022 11:26 AM EST Plan of Treatment Upcoming Encounters Date Type Department Care Team (Late st Contact Info) Description 09/19/2024 8:30 AM EDT Office Visit Adult Medicine [facility] [address] [place] [phone] Fadumo Todd PA [address] [place] [address] Health Maintenance Due Date Last Done Comments Pneumococcal Vaccine: 50+ Years (1 of 2 - PCV) 1988 Pneumococcal Vaccine: Pediatrics (0 to 5 Years) and At-Risk Patients (6 to 64 Years) (1 of 2 - PCV) 1988 Hepatitis B Vaccines (3 of 3 - 19+ 3-dose series) 03/16/2014 01/19/2014, 07/21/2013 Zoster Vaccines (1 of 2) 2019 Depression Screening 06/14/2022 HIV Screening 06/14/2022 Social Influencers of Health Screening 06/14/2022 COVID-19 Vaccine (1 - 2023-2 5 season) 2024 Influenza Vaccine (#1) 2024 DTaP,Tdap,and Td Vaccines (2 - Td or Tdap) 05/03/2024 05/03/2014 Cholesterol Screening (Lipid Panel) 09/17/2027 09/16/2022 Colorectal Cancer Screening: Colonoscopy 08/29/2030 08/29/2020 Hepatitis A Vaccines Aged Out 01/19/2014, 07/21/2013 No longer eligible based on patient's age to complete this topic Hepatitis C Screening Completed 08/23/2020 HIB Vaccines Aged Out No longer eligi ble based on patient's age to complete this topic HPV Vaccines Aged Out No longer eligi ble based on patient's age to complete this topic IPV Vaccines Aged Out No longer eligi ble based on patient's age to complete this topic MMR Vaccines Aged Out No longer eligi ble based on patient's age to complete this topic Meningococcal ACWY Vaccine Aged Out N o longer eligible based on patient's age to complete this topic Meningococcal B Vacine Aged Out No lo nger eligible based on patient's age to complete this topic RSV Immunization Patients Under 20 months Aged Out No longer eligible b ased on patient's age to complete this topic Varicella Vaccines Aged Out No longer eligible based on patient's age to complete this topic Procedures Procedure Name Priority Date/Time Associated Diagnosis Comments LIPID PANEL Routine 09/16/2022 COLONOSCOPY Routine 08/29/2020 HEPATITIS C SCREENING Routine 08/23/2020 from Last 3 Months or Most Recently Relevant to Health Maintenance Results * (ABNORMAL) Lipid panel (09/16/2022) Pathologist [facility] LDL/HDL Ratio 6(A) 0 - 4 Triglycerides 430(A) 0 - 150 mg/dL Cholesterol 232(A) 0 - 200 mg/dL HDL 40 >=40 mg/dL LDL Cholesterol 106(A) 0 - 100 mg/dL Blood Venous blood specimen / Unknown Historical Provider LAB BLOOD ORDERABLES Nancy l Result * Colonoscopy (08/29/2020) Pathologist [facility] Colonoscopy No interpretation , Abstracted Anatomical Region Laterality Modality Other Historical Provider HEALTH MAINTENANCE Final Result * Hepatitis C Screening (08/23/2020) Pathologist [facility] Hepatitis C Screening Abstracted Historical Provider HEALTH MAINTENANCE Final Result from Last 3 Months or Most Recently Relevant to Health Maintenance Care Teams Lay Out Maker Relationship Specialty Start Date End Date Mick Calvillo MD [address] [place] [address] PCP - General Internal Medicine 11/04/21
== END 2024-08-29 09:44 | disposition home or self-care (01) ==
PROVIDERS: PCP Internal Medicine; Visit Provider Orthopaedic Surgery
DX: M77.11 Lateral epicondylitis, right elbow (principal); G56.31 Lesion of radial nerve, right upper limb
CPT/HCPCS: 99214

== ENCOUNTER → 2024-08-29 09:06 | Outpatient (BNVA) | payer OTHER, SELFPAY | PROVIDERS: PCP Internal Medicine; Visit Provider Orthopaedic Surgery | DX: M77.11 Lateral epicondylitis, right elbow (principal); G56.30 Lesion of radial nerve, unspecified upper limb; Z98.890 Other specified postprocedural states | CPT/HCPCS: 99212 ==

== ENCOUNTER 2024-09-29 14:12 | Outpatient (REF) | payer OTHER, SELFPAY ==
--- NOTE | 2024-09-29 14:15 | EMG_ITS ---
History: Tingling/burning on right lateral forearm and base of thumb. Denies numbness on the fingers. S/P right lateral epicondylitis debridement 02/10/24 History of right Carpal Tunnel Syndrome surgery 2 years ago. Exam: 4/5 on right wrist extension and finger extension. 5/5 on rest of muscles on right upper extremity. No atrophy. Reason for referral: Evaluate for radial neuropathy Referred by: Dr. Shrestha Procedure done: Right upper extremity NCS/EMG Precautions and/or limitations: None The limb temperature was monitored continuously and remained between 32-36 degrees C during the performance of the NCS. Nerve Conduction Studies Anti Sensory Summary Table ?Stim Site NR Onset (ms) Norm Onset (ms) Peak (ms) Norm Peak (ms) O-P Amp (?V) Norm O-P Amp Site1 Site2 Delta-0 (ms) Dist (cm) Guero (m/s) Norm Guero (m/s) Right Median Anti Sensory (2nd Digit) Wrist ? 2.7 3.4 <3.6 28.1 >10 Wrist 2nd Digit 2.7 14.0 52 Right Radial Anti Sensory (Thumb) Forearm ? 1.5 2.2 <3.1 29.4 Forearm Thumb 1.5 0.0 Right Ulnar Anti Sensory (5th Digit) Wrist ? 2.1 3.0 <3.7 16.2 >15.0 Wrist 5th Digit 2.1 14.0 67 Motor Summary Table ?Stim Site NR Onset (ms) Norm Onset (ms) O-P Amp (mV) Norm O-P Amp iAmp (mV) Amp (1st) (%) Site1 Site2 Delta-0 (ms) Dist (cm) Geuro (m/s) Norm Guero (m/s) Right Median Motor (Abd Poll Brev) Wrist ? 3.8 <3.9 10.3 >4.5 12.6 100.0 Elbow Wrist 4.2 21.0 50 >45 Elbow ? 8.0 7.9 9.8 76.7 Right Radial Motor (Arm) Forearm ? 3.2 <2.9 2.0 >2.0 1.7 100.0 3.2 0.0 Elbow ? 5.5 0.2 0.2 10.0 Elbow Forearm, 2.3 16.0 70 >60 Spiral groove ? 7.1 2.7 3.2 135.0 Forearm Spiral groove 1.6 14.0 88 Right Ulnar Motor (Abd Dig Minimi) Wrist ? 2.7 <3.0 9.3 >5 11.0 100.0 B Elbow Wrist 3.6 21.0 58 >45 B Elbow ? 6.3 8.3 10.0 89.2 A Elbow B Elbow 1.2 10.0 83 >45 A Elbow ? 7.5 8.2 10.1 88.2 EMG ?Side Muscle Nerve Root Ins Act Fibs Psw Amp Dur Poly Recrt Int Pat Comment Right 1stDorInt Ulnar C8-T1 Nml Nml Nml Nml Nml 0 Nml Complete Right FlexCarRad Median C6-7 Nml Nml Nml Nml Nml 0 Nml Complete Right Biceps Musculocut C5-6 Nml Nml Nml Nml Nml 0 Nml Complete Right Triceps Radial C6-7-8 Nml Nml Nml Nml Nml 0 Nml Complete Right Deltoid Axillary C5-6 Nml Nml Nml Nml Nml 0 Nml Complete Right BrachioRad Radial C5-6 Nml Nml Nml Nml Nml 0 Nml Complete Right ExtIndicis Radial (Post Int) C7-8 Nml Nml Nml Nml Nml 0 Reduced Complete Right ExtDigCom Radial (Post Int) C7-8 Nml Nml Nml Nml Nml 0 Reduced Complete Paraspinal EMG ?Side Muscle Nerve Root Ins Act Fibs Psw Comment Right Cervical Upper Rami Nml Nml Nml Right Cervical Mid Rami Nml Nml Nml Right Cervical Lower Rami Nml Nml Nml FINDINGS: Right radial motor nerve showed prolonged distal latency, small amplitudes seen on forearm and elbow, but normal amplitude above spiral groove, and normal conduction velocity. All other nerves tested were within normal. Concentric needle EMG was performed in selected muscles of the right upper extremity and cervical paraspinals. Study revealed signs of electric abnormalities as shown in the table above. Reduced recruitment seen on right EDC and EIP muscles. No denervation seen on other radial innervated muscles. No denervation seen on cervical paraspinals. IMPRESSION: 1. This is an abnormal study. 2. 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 3. There is no electrodiagnostic evidence for median neuropathy, ulnar neuropathy, brachial plexopathy, or cervical radiculopathy. Thank you for your kind referral. Addie Hernandez MD, AUGUST Board Certified, [place] Board [employer] Physical Medicine and Rehabilitation (ABPMR) Board Certified, [place] Board of Electrodiagnostic Medicine (ABEM) [place] [id number] [facility]
--- OUTSIDE RECORDS SUMMARY | 2024-09-29 17:49 | XMS_ITS | Encounter Summary ---
Author Organization [facility] Address [address] [place] [address] Care Team Providers Care Electronic Wirer Name Role Phone Shira Ibarra MD Primary Care Provider Unavailable Mick Calvillo Primary Care Provider [phone] Encounter Details Date Type Department Care Team Description 01/17/2021 Refill Adult Medicine [address] [address] Shira Ibarra MD Social History Tobacco Use Types Packs/Day Years Used Date Smoking Tobacco: Every Day Cigarettes 0.5 Smokeless Tobacco: Never Alcohol Use Standard Drinks/Week Comments No 0 (1 standard drink = 0.6 oz pur e alcohol) Sex Assigned at Date Recorded Male 09/04/2021 7:[address] Job Start Date Occupation Industry Not on file Not on file Not on file COVID-19 Exposure Response Date Recorded In the last month, have you been in contact with someone who was confirmed or suspected to have Coronavirus / COVID-19? No / Unsure 01/18/2021 9:19 AM EDT documented as of this encounter Miscellaneous Notes * Telephone Encounter - Megan Richards M.A. - 01/17/2021 8:56 AM EDT Chet 09/10/20 No follow up apt scheduled. Medication pended for review. documented in this encounter Plan of Treatment Not on file documented as of this encounter Visit Diagnoses Not on filedocumented in this encounter Care Teams Electronic Wirer Relationship Specialty Start Date End Date Shira Ibarra MD PCP - General Internal Medicine 05/20/1711/03 Mick Calvillo [address] [place] [id number] PCP - General Internal Medicine 11/04/21 documented as of this encounter
--- OUTSIDE RECORDS SUMMARY | 2024-09-29 17:49 | XMS_ITS | Encounter Summary ---
Author Organization [facility] Address [address] [place] [address] Care Team Providers Care Capacity Planning Analyst Name Role Phone Shira Ibarra MD Primary Care Provider Unavailable Mick Calvillo Primary Care Provider [phone] Reason for Visit * Reason Comments E-prescribe Rx Request Encounter Details Date Type Department Care Team Description 06/25/2020 Refill Adult Medicine - [address] [address] Shira Ibarra MD E-prescribe Rx Request Social History Tobacco Use Types Packs/Day Years Used Date Smoking Tobacco: Every Day Cigarettes 0.5 Smokeless Tobacco: Never Alcohol Use Standard Drinks/Week Comments No 0 (1 standard drink = 0.6 oz pur e alcohol) Sex Assigned at Date Recorded Male 09/04/2021 7:[address] Job Start Date Occupation Industry Not on file Not on file Not on file documented as of this encounter Miscellaneous Notes * Telephone Encounter - Corina Bean L.P.N. - 06/25/2020 3:52 PM EST Faxed to pharmacy * Telephone Encounter - Elina Mathew M.A. - 06/25/2020 3:02 PM EST Lab Results Component Value Date CHOL 209 08/09/2019 LDL 118 08/09/2019 HDL 51 08/09/2019 TRIG 202 08/09/2019 * Telephone Encounter - Leticia Longoria - 06/25/2020 1:57 PM EST Patient would like script to be: E-PRESCRIBED/FAXED TO PHARMACY WHEN WAS THE PATIENT'S LAST APPOINTMENT IN ADULT MEDICINE? 04/27/20 WHEN WAS THE LAST TIME THE PATIENT SAW THEIR PCP? 05/26/19 Does patient have an upcoming appointment? Yes 07/09/20 (THE MEDICATION REQUESTED IS ON THE MED LIST ABOVE) All of the medications requested were on the CURRENT MEDS list Did you check the Pharmacy information above?: YES Patient wants: 90 -day supply Is this a mail order prescription request ? NO If the refill is from a FAXED refill request what is the RX # listed on the fax? N/A Patients current insurance carrier is: Payor: [employer] FFS / Plan: [employer] / Product Type: MEDICAID RISK documented in this encounter Plan of Treatment Not on file documented as of this encounter Visit Diagnoses Not on filedocumented in this encounter Care Teams Capacity Planning Analyst Relationship Specialty Start Date End Date Shira Ibarra MD PCP - General Internal Medicine 05/20/1711/03 Mick Calvillo [address] [place] [address] PCP - General Internal Medicine 11/04/21 documented as of this encounter
--- OUTSIDE RECORDS SUMMARY | 2024-09-29 17:49 | XMS_ITS | Encounter Summary ---
Author Organization [facility] Address [address] [place] [address] Care Team Providers Care Ramp Flight Attendant Name Role Phone Mick Calvillo Primary Care Provider [phone] Encounter Details Date Type Department Care Team Description 12/30/2023 Refill Adult Medicine [address] [address] Mick Calvillo [address] [place] [address] Social History Tobacco Use Types Packs/Day Years Used Date Smoking Tobacco: Every Day Cigarettes 1 Smokeless Tobacco: Never Alcohol Use Standard Drinks/Week Comments Yes 0 (1 standard drink = 0.6 oz pur e alcohol) 2-4 beers daily Sex Assigned at Date Recorded Male 09/04/2021 7:[address] Job Start Date Occupation Industry Not on file Not on file Not on file documented as of this encounter Miscellaneous Notes * Telephone Encounter - Zayra Moore M.A. - 12/30/2023 8:14 AM EDT Last office visit 09/12/22 Next office visit 09/19/24 Pt needs med review now documented in this encounter Plan of Treatment Not on file documented as of this encounter Visit Diagnoses Not on filedocumented in this encounter Care Teams Ramp Flight Attendant Relationship Specialty Start Date End Date Mick Calvillo [address] [place] [address] PCP - General Internal Medicine 11/04/21 documented as of this encounter
--- OUTSIDE RECORDS SUMMARY | 2024-09-29 17:49 | XMS_ITS | Encounter Summary ---
Author Organization [facility] Address [address] [place] [address] Care Team Providers Care Instrumentation Designer Name Role Phone Mick Calvillo Primary Care Provider Encounter Details Date Type Department Care Team Description 12/08/2022 Fitness Studies Teacher Report Medical Records [address] [place] [address] Jesus Shrestha MD Social History Tobacco Use Types Packs/Day [...] on file documented as of this encounter Plan of Treatment Not on file documented as of this encounter Visit Diagnoses Not on filedocumented in this encounter Care Teams Instrumentation Designer Relationship Specialty Start Date End Date Mick Calvillo [address] [place], [place] [phone] PCP - General Internal Medicine 11/04/21 documented as of this encounter
--- OUTSIDE RECORDS SUMMARY | 2024-09-29 17:49 | XMS_ITS | Encounter Summary ---
Author Organization [facility] Address [address] [place] [address] Care Team Providers Care Interface Control Officer Name Role Phone Mick Calvillo Primary Care Provider [phone] Encounter Details Date Type Department Care Team Description 12/03/2023 Steward/Stewardess Third Class Report Medical Records [address] [place] [address] Jesus Shrestha MD Social History Tobacco Use [...] on filedocumented in this encounter Care Teams Interface Control Officer Relationship Specialty Start Date End Date Mick Calvillo [address] [place], [place] [phone] PCP - General Internal Medicine 11/04/21 documented as of this encounter
--- OUTSIDE RECORDS SUMMARY | 2024-09-29 17:49 | XMS_ITS | Encounter Summary ---
Author Organization [facility] Address [address] [place] [address] Care Team Providers Care Secretary To Board Of Commissioners Name Role Phone Mick Calvillo Primary Care Provider [phone] Encounter Details Date Type Department Care Team Description 07/24/2023 Mortar Man Report Medical Records [address] [place] [address] Jesus Shrestha MD Social History Tobacco Use [...] on filedocumented in this encounter Care Teams Secretary To Board Of Commissioners Relationship Specialty Start Date End Date Mick Calvillo [address] [place], [place] [phone] PCP - General Internal Medicine 11/04/21 documented as of this encounter
--- OUTSIDE RECORDS SUMMARY | 2024-09-29 17:49 | XMS_ITS | Encounter Summary ---
Author Organization [facility] Address [address] [place] [address] Care Team Providers Care Nurse Ortho Name Role Phone Shira Ibarra MD Primary Care Provider Unavailable Mick Calvillo Primary Care Provider [phone] Encounter Details Date Type Department Care Team Description 01/17/2021 Pt. Non Urgent Medic al Question Adult Medicine - [address] [address] Joanna Burkett PA-C Social History Tobacco Use Types Packs/Day Years [...] Telephone Encounter - Corina Bean L.P.N. - 01/18/2021 8:38 AM EDT From: Cheko Almaraz To: Geo Burkett Sent: 01/17/2021 4:49 PM EDT Subject: Heart Burn Med. Hello, I need to have the OM... med refilled. [facility] keeps giving an F named pill that doesn't work. Respectfully, Cheko Romeroix documented in this encounter Plan of Treatment Not on file documented as of this encounter Visit Diagnoses Not on filedocumented in this encounter Care Teams Nurse Ortho Relationship Specialty Start Date End Date Shira Ibarra MD PCP - General Internal Medicine 05/20/1711/03 Mick Calvillo [address] [place] [id number] PCP - General Internal Medicine 11/04/21 documented as of this encounter
--- OUTSIDE RECORDS SUMMARY | 2024-09-29 17:49 | XMS_ITS | Encounter Summary ---
Author Organization [facility] Address [address] [place] [address] Care Team Providers Care Paper Bags Sewing Machine Operator Name Role Phone Shira Ibarra MD Primary Care Provider Unavailable Mick Calvillo Primary Care Provider [phone] Encounter Details Date Type Department Care Team Description 08/02/2020 Ceramic Tile Mechanic Report Medical Records [address] [place] [address] Sim Villar Social History Tobacco Use Types Packs/Day Years [...] have Coronavirus / COVID-19? No / Unsure 07/20/2020 7:40 AM EST documented as of this encounter Plan of Treatment Not on file documented as of this encounter Visit Diagnoses Not on filedocumented in this encounter Care Teams Paper Bags Sewing Machine Operator Relationship Specialty Start Date End Date Shira Ibarra MD PCP - General Internal Medicine 05/20/1711/03 Mick Calvillo [address] [place] [address] PCP - General Internal Medicine 11/04/21 documented as of this encounter
--- OUTSIDE RECORDS SUMMARY | 2024-09-29 17:49 | XMS_ITS | Encounter Summary ---
Author Organization [facility] Address [address] [place] [address] Care Team Providers Care Curator Medical Museum Name Role Phone Shira Ibarra MD Primary Care Provider Unavailable Mick Calvillo Primary Care Provider [phone] Encounter Details Date Type Department Care Team Description 03/30/2018 Salesperson Trailers [employer] Motor [employer] Report Medical Records [address] [place] [address] Malika Cruz PA-C Social History Tobacco Use Types Packs/Day [...] on filedocumented in this encounter Care Teams Curator Medical Museum Relationship Specialty Start Date End Date Shira Ibarra MD PCP - General Internal Medicine 05/20/1711/03 Mick Calvillo [address] [place], [place] [phone] PCP - General Internal Medicine 11/04/21 documented as of this encounter
--- OUTSIDE RECORDS SUMMARY | 2024-09-29 17:49 | XMS_ITS | Encounter Summary ---
Author Organization [facility] Address [address] [place] [address] Care Team Providers Care Toe Trimmer Name Role Phone Mick Calvillo Primary Care Provider [phone] Encounter Details Date Type Department Care Team Description 11/08/2021 Refill Adult Medicine [address] [address] Shira Ibarra MD Social History Tobacco Use [...] on filedocumented in this encounter Care Teams Toe Trimmer Relationship Specialty Start Date End Date Mick Calvillo [address] [place] [address] PCP - General Internal Medicine 11/04/21 documented as of this encounter
--- OUTSIDE RECORDS SUMMARY | 2024-09-29 17:49 | XMS_ITS | Encounter Summary ---
Author Organization [facility] Address [address] [place] [address] Care Team Providers Care Cap Machine Operator Name Role Phone Mick Calvillo Primary Care Provider [phone] Encounter Details Date Type Department Care Team Description 12/30/2023 Refill Adult Medicine [facility] [address] [place] [address] Fadumo Todd PATeresaC [address] [place] [address] Social History Tobacco Use Types Packs/Day Years [...] Encounter - Zayra Moore M.A. - 12/30/2023 9:23 AM EDT Last office visit 09/12/22 Next office visit 09/19/24 ?? Pt needs med review now documented in this encounter Plan of Treatment Not on file documented as of this encounter Visit Diagnoses Not on filedocumented in this encounter Care Teams Cap Machine Operator Relationship Specialty Start Date End Date Mick Calvillo [address] [place] [id number] PCP - General Internal Medicine 11/04/21 documented as of this encounter
--- OUTSIDE RECORDS SUMMARY | 2024-09-29 17:49 | XMS_ITS | Encounter Summary ---
Author Organization [facility] Address [address] [place] [address] Care Team Providers Care Tabulating Clerk Name Role Phone Shira Ibarra MD Primary Care Provider Unavailable Mick Calvillo Primary Care Provider [phone] Encounter Details Date Type Department Care Team Description 06/01/2017 Release of Information Medical Records [address] [place] [address] Abstract, Provider Social History Tobacco Use Types Packs/Day Years [...] on filedocumented in this encounter Care Teams Tabulating Clerk Relationship Specialty Start Date End Date Shira Ibarra MD PCP - General Internal Medicine 05/20/1711/03 Mick Calvillo [address] [place] [address] PCP - General Internal Medicine 11/04/21 documented as of this encounter
--- OUTSIDE RECORDS SUMMARY | 2024-09-29 17:49 | XMS_ITS | Encounter Summary ---
Author Organization [facility] Address [address] [place] [address] Care Team Providers Care Director Wholesale Name Role Phone Shira Ibarra MD Primary Care Provider Unavailable Mick Calvillo Primary Care Provider [phone] Encounter Details Date Type Department Care Team Description 07/17/2017 Transfer Records Medical Records [address] [place] [address] Abstract, Provider Social History Tobacco Use Types [...] on filedocumented in this encounter Care Teams Director Wholesale Relationship Specialty Start Date End Date Shira Ibarra MD PCP - General Internal Medicine 05/20/1711/03 Mick Calvillo [address] [place] [address] PCP - General Internal Medicine 11/04/21 documented as of this encounter
--- OUTSIDE RECORDS SUMMARY | 2024-09-29 17:49 | XMS_ITS | Clinical Summary ---
Author Organization [facility] [address] [place] [address] [place] [phone] Phone Care Team Providers Care Door To Door Salesman Name Role Phone Mick Calvillo MD Primary Care Provider Allergies Active Allergy Reactions Criticality Noted Date Comments Bee Venom Protein (Honey Bee) Anaphylaxis High 06/22 Bee Stings Medications atorvastatin (LIPITOR) 20 mg tablet TAKE 1 TABLET BY MOUTH EVERY DAY 3 Active sildenafiL (VIAGRA) 100 mg tablet Take 0.5 Tabs by mouth as needed for Erectile Dysfunction. 1 Active FA/mv,Ca,iron,m in/lycopene/lut (MULTIVITAL ORAL) Take by mouth. Active omeprazole (PriLOSEC) [address] capsule Take 1 capsule (20 mg total) by mouth 1 (one) time each day. Do not crush or chew. 90 capsule 1 5 Active metFORMIN XR (GLUCOPHAGE-XR) 500 mg 24 hr tablet Take 1 tablet (500 mg total) by mouth 1 (one) time each day with breakfast. Do not crush, chew, or split. 90 tablet 1 5 Active omeprazole (PriLOSEC) [address] capsule TAKE 1 CAPSULE BY MOUTH EVERY DAY 3 09/20/19 25 Discontinu ed(Reorder ) Active Problems Problem Noted Date Diagnosed Date Metatarsalgia of both feet 09/19/2024 Colon polyps 09/12/2020 Overview (06/13/2024): CN_2020 Reflux esophagitis 09/12/2020 Overview (06/13/2024): Upper endoscopy-08/26-LA grade B reflux esophagitis, benign-appearing esophageal stenosis, gastritis with hemorrhage, biopsied, small hiatal hernia-PPI to continue. Allergic rhinitis 06/22/2017 DJD (degenerative joint disease) 06/22/2017 Overview (06/13/2024): knees Gastritis 06/22/2017 Pure hypercholesterolemia 06/22/2017 Overview (06/13/2024): Ascvd 3.8%-10% History of substance abuse 05/27/2017 Overview (06/13/2024): Marijuana, alcohol, cocaine Encounters Date Type Department Care Team Description 09/19/2024 8:30 AM EDT Office Visit Adult Medicine [address] [phone] Fadumo Todd PA Adult general medical examination (Primary Dx); Metatarsalgia of both feet; Pure hypercholesterolemia; Polyp of colon, unspecified part of colon, unspecified type; Multiple atypical skin moles; Screening for prostate cancer; Screening for diabetes mellitus; Newly diagnosed diabetes (CMS/HCC) from Last 3 Months Immunizations Name Administration Dates Next Due Hepatitis A Adult (Havrix; Vaqta) 19yo and older 01/19/2014,07/21/2013 Hepatitis B (Tlrbymx-Q-Fghsb , Recombivax HB-Adult) 19yo and older 01/19/2014,07/21/2013 Td Tetanus diptheria, preser vative free (Tenivac) 7yo and older 09/19/2024 Tdap Tetanus diptheria acell ular pertussis (Boostrix; Adacel) 7yo and older 05/03/2014 Surgical History Surgery Date Site/Laterality Comments OTHER SURGICAL HISTORY PROCEDURE: DENIES PREVIOUS SURGERY Medical History Medical History Date Comments Allergic rhinitis 06/22/2017 DX:Allergic rh initis DJD (degenerative joint disease) 06/22/2017 DX:DJD (degenerative joint disease); COMMENT: knees Gastritis 06/22/2017 DX:Gastritis History of substance abuse 05/27/2017 DX:Hi story of substance abuse (HCC); COMMENT: Marijuana, alcohol, cocaine Pure hypercholesterolemia 06/22/2017 DX:Pur e hypercholesterolemia Reflux esophagitis 09/12/2020 DX:Reflux eso phagitis Colon polyps 09/12/2020 DX:Colon polyps; COMMENT: CN_2020 Rectal polyp 09/12/2020 DX:Rectal polyp Family History [...] Types Packs/Day Years Used Date Smoking Tobacco: Some Days Cigarettes Smokeless Tobacco: Never Alcohol Use Standard Drinks/Week Comments Yes 0 (1 standard drink = 0.6 oz pur e alcohol) Housing Instability Answer Date Recorde d Are you worried that in the next 2 months you may not have stable housing? No 09/18/2024 Food Access & Nutrition Answer Date Rec orded Do you have access to a vari ety of food including fruits and vegetables? Yes 09/18/2024 Access to Healthcare Answer Date Record ed Within the last 3 months, ho w many times did you visit the emergency department for your medical care? 1 09/18/2024 Health Literacy Answer Date Recorded How often do you need to hav e someone help you when you read instructions, pamphlets, or other written material from your doctor or pharmacy? Never 09/18/2024 Caregiver: How often do you need to have someone help you when you read instructions, pamphlets, or other written material from your doctor or pharmacy? Not on file 09/18/2024 Financial Risk Answer Date Recorded How hard is it for you to pa y for the very basics like food, housing, medical care, and air conditioning / heating? Somewhat hard 09/18/2024 Transportation Answer Date Recorded Has the lack of transportati on kept you from meetings, work, or from getting things needed for daily living? No Has the lack of transportati on kept you from medical appointments or from getting medications? No 09/18/2024 Social Isolation Answer Date Recorded How often do you feel lonely or isolated from th ose around you? Never 09/18/2024 Food Risk Answer Date Recorded Within the past 12 months we worried whether our food would run out before we got money to buy more. Never true 09/18/2024 Within the past 12 months th e food we bought just didn't last and we didn't have money to get more. Never true 09/18/2024 Dependent Care Answer Date Recorded Do you need help finding or paying for care for your loved ones. For example, children's nursery assistant or elderly care for an older adult? No 09/18/2024 Education Answer Date Recorded Do you think completing more education or training, like finishing a GED, going to college, or learning a trade, would be helpful for you? Yes 09/18/2024 Employment and Income Answer Date Recor ded During the last four weeks, have you been actively looking for work? No 09/18/2024 Living Situation Answer Date Recorded What is your living situation? 0 09/18/2024 Sex and Gender Information Value Date Recorded Sex Assigned at Not on file Legal Sex Male 11:20 PM EST Gender Identity Not on file Sexual Orientation Not on file Obstetrics History Last Filed Vital Signs Vital Sign Reading Time Taken Comments Blood Pressure 123/87 09/19/2024 8:33 AM EDT Pulse 93 09/19/2024 8:33 AM EDT Temperature 36.7 ??C (98.1 ??F) 09/19/2024 8:33 AM ED T Respiratory Rate 14 09/19/2024 8:33 AM EDT Oxygen Saturation - - Inhaled Oxygen Concentration - - Weight 135 kg (297 lb) 09/19/2024 8:33 AM EDT Height 190.5 cm (6' 3 ) 09/19/2024 8:33 AM EDT Body Mass Index 37.12 09/19/2024 8:33 AM EDT Plan of Treatment Upcoming Encounters Date Type Department Care Team (Late st Contact Info) Description 12/23/2024 9:30 AM EDT Office Visit Adult Medicine [address] [phone] Fadumo Todd PA [address] [place] [address] 01/03/2025 12:30 PM EDT Appointment [facility] Endoscopy [address] [place] [phone] Ravi Bear MD [address] [address] Health Maintenance Due Date Last Done Comments COVID-19 Vaccine (#1) 1974 Diabetes: Annual Foot Exam 1979 Diabetes: Annual Retina Eye Exam 1979 Pneumococcal Vaccine: 50+ Years (1 of 2 - PCV) 1988 Pneumococcal Vaccine: Pediatrics (0 to 5 Years) and At-Risk Patients (6 to 64 Years) (1 of 2 - PCV) 1988 Zoster Vaccines (1 of 2) 1988 Hepatitis B Vaccines (3 of 3 - 19+ 3-dose series) 03/16/2014 01/19/2014, 07/21/2013 Diabetes: Annual Urine Albumin-Creatinine Ratio (uACR) 09/22/2024 Influenza Vaccine (#1) 2025 Postp oned from 03/06/2024 (Patient Refused) Diabetes: Blood Sugar Contro l Test (HGBA1C) 03/22/2025 09/19/2024 Depression Screening 09/18/2025 09/18/2024 Social Influencers of Health Screening 09/18/2025 09/18/2024 Diabetes: Annual GFR (Glomerular Filtration Rate) 09/19/2025 09/19/2024, 09/16/2022 Cholesterol Screening (Lipid Panel) 09/19/2029 09/19/2024, 09/16/2022 Colorectal Cancer Screening: Colonoscopy 08/29/2030 08/29/2020 DTaP,Tdap,and Td Vaccines (3 - Td or Tdap) 09/19/2034 09/19/2024, 05/03/2014 Hepatitis A Vaccines Aged Out 01/19/2014, 07/21/2013 No longer eligible based on patient's age to complete this topic Hepatitis C Screening Completed 08/23/2020 HIB Vaccines Aged Out No longer eligi ble based on patient's age to complete this topic HIV Screening Discontinued HPV Vaccines Aged Out No longer eligi [...] Procedure Name Priority Date/Time Associated Diagnosis Comments CBC WITH AUTO DIFFERENTIAL Routine 09/19/2024 9:15 AM EDT Adult general medical examination Pure hypercholesterolem ia Screening for diabetes mellitus HEMOGLOBIN A1C Routine 09/19/2024 9:15 AM EDT Adult general medical examination Pure hypercholesterolem ia Screening for diabetes mellitus CBC AND DIFFERENTIAL Routine 09/19/2024 9:15 AM EDT Adult general medical examination Pure hypercholesterolem ia Screening for diabetes mellitus COMPREHENSIVE METABOLIC PANEL Routine 09/19/2024 9:15 AM EDT Adult general medical examination Pure hypercholesterolem ia Screening for diabetes mellitus THYROID STIMULATING HORMONE WITH REFLEX TO FREE T4 AND FREE T3 Routine 09/19/2024 9:15 AM EDT Adult general medical examination Pure hypercholesterolem ia Screening for diabetes mellitus MAGNESIUM Routine 09/19/2024 9:15 AM EDT Adult general medical examination Pure hypercholesterolem ia Screening for diabetes mellitus LIPID PANEL WITH REFLEX TO DIRECT LDL Routine 09/19/2024 9:15 AM EDT Adult general medical examination Pure hypercholesterolem ia Screening for diabetes mellitus HM COLONOSCOPY Routine 08/29/2020 HEPATITIS C SCREENING Routine 08/23/2020 from Last 3 Months or Most Recently Relevant to Health Maintenance Results * Thyroid stimulating hormone with reflex to free t4 and free t3 (09/19/2024 9:15 AM EDT) Pathologist [facility] [place] TSH 1.91 0.40 - 4.00 mcIU/mL LAB CHEMISTRY METHOD 09/19/2024 1:08 PM EDT [facility] Blood Venous blood specimen / Unknown Venipuncture / Unknown 09/19/2024 9:15 AM EDT 09/19/2024 9:15 AM EDT Fadumo ROBB LAB BLOOD ORDERABLES Fin al Result [facility] [address] [place] [address], [place] [phone] * (ABNORMAL) Lipid panel with reflex to direct LDL (09/19/2024 9:15 AM EDT) Pathologist [facility] [place] Cholesterol 234(H) 0 - 200 mg/dL LAB CHEMISTRY METHOD 09/19/2024 1:13 PM EDT [facility] Triglycerides 272(H) 0 - 150 mg/dL LAB CHEMISTRY METHOD 09/19/2024 1:13 PM EDT [facility] HDL 45 >=40 mg/dL LAB CHEMISTRY METHOD 09/19/2024 1:13 PM EDT [facility] LDL Calculated 135(H) 0 - 100 mg/dL LAB CHEMISTRY METHOD 09/19/2024 1:13 PM EDT [facility] VLDL Cholesterol Jason 54.4 mg/dL LAB CHEMISTRY METHOD 09/19/2024 1:13 PM EDT [facility] Non HDL Chol. (LDL+VLDL) 189(H) <145 mg/dL LAB CHEMISTRY METHOD 09/19/2024 1:13 PM EDT [facility] Chol/HDL Ratio 5.2(H) 0.0 - 4.4 LAB CHEMISTRY METHOD 09/19/2024 1:13 PM EDT [facility] Blood Venous blood specimen / Unknown Venipuncture / Unknown 09/19/2024 9:15 AM EDT 09/19/2024 9:15 AM EDT Fadumo ROBB LAB BLOOD ORDERABLES Fin al Result [facility] [address] [place] [address], * CBC auto differential (09/19/2024 9:15 AM EDT) WBC 9.2 4.8 - 10.8 K/mcL LAB HEMETOLOGY METHOD 09/19/2024 10:06 AM EDT [facility] RBC 5.20 4.50 - 5.50 M/[facility] LAB HEMETOLOGY METHOD 09/19/2024 10:06 AM [facility] Hemoglobin 15.9 13.5 - 17.5 g/dL LAB HEMETOLOGY METHOD 09/19/2024 10:06 AM [facility] Hematocrit 47.5 42.0 - 54.0 % LAB HEMETOLOGY METHOD 09/19/2024 10:06 AM T [facility] MCV 90.6 79.0 - 98.0 FL LAB HEMETOLOGY METHOD 09/19/2024 10:06 AM [facility] MCH 30.3 27.0 - 32.0 pcg LAB HEMETOLOGY METHOD 09/19/2024 10:06 AM [facility] MCHC 33.5 32.0 - 37.0 g/dL LAB HEMETOLOGY METHOD 09/19/2024 10:06 AM [facility] RDW 12.8 11.0 - 15.0 % LAB HEMETOLOGY METHOD 09/19/2024 10:06 AM [facility] Platelets 354 130 - 400 K/mcL LAB HEMETOLOGY METHOD 09/19/2024 10:06 AM [facility] MPV 9.5 7.0 - 11.0 FL LAB HEMETOLOGY METHOD 09/19/2024 10:06 AM [facility] NRBC 0.0 <1.0 % LAB HEMETOLOGY METHOD 09/19/2024 10:06 AM [facility] NRBC Absolute 0.00 <0.10 K/mcL LAB HEMETOLOGY METHOD 09/19/2024 10:06 AM [facility] Neutrophils Relative 60.4 % LAB HEMETOLOGY METHOD 09/19/2024 10:06 AM [facility] Lymphocytes Relative 27.7 % LAB HEMETOLOGY METHOD 09/19/2024 10:06 AM [facility] Monocytes Relative 7.8 % LAB HEMETOLOGY METHOD 09/19/2024 10:06 AM [facility] Eosinophils Relative 2.9 % LAB HEMETOLOGY METHOD 09/19/2024 10:06 AM [facility] Basophils Relative 0.9 % LAB HEMETOLOGY METHOD 09/19/2024 10:06 AM [facility] Immature Granulocytes Relative 0.3 % LAB HEMETOLOGY METHOD 09/19/2024 10:06 AM [facility] Neutrophils Absolute 5.56 1.50 - 7.00 K/mcL LAB HEMETOLOGY METHOD 09/19/2024 10:06 AM [facility] Lymphocytes Absolute 2.55 1.00 - 5.00 K/mcL LAB HEMETOLOGY METHOD 09/19/2024 10:06 AM [facility] Monocytes Absolute 0.72 0.20 - 1.00 K/mcL LAB HEMETOLOGY METHOD 09/19/2024 10:06 AM EDT [facility] Eosinophils Absolute 0.27 0.00 - 0.50 K/[facility] HEMETOLOGY METHOD 09/19/2024 10:06 AM EDT [facility] Basophils Absolute 0.08 0.00 - 0.20 K/[facility] LAB HEMETOLOGY METHOD 09/19/2024 10:06 AM EDT [facility] Immature Granulocytes Absolute 0.03 0.00 - 0.03 /[facility] LAB HEMETOLOGY METHOD 09/19/2024 10:06 AM EDT [facility] Blood Venous blood specimen / Unknown Venipuncture / Unknown 09/19/2024 9:15 AM EDT 09/19/2024 9:15 AM EDT Fadumo ROBB LAB BLOOD ORDERABLES Fin al Result Performing Organization Address City/[facility]/ZIP Co de Phone Number [facility] [address] [place] [address], [place] [phone] * Magnesium (09/19/2024 9:15 AM EDT) [facility] Magnesium 2.3 1.9 - 2.6 mg/dL LAB CHEMISTRY METHOD 09/19/2024 1:00 PM EDT [facility] Blood Venous blood specimen / Unknown Venipuncture / Unknown 09/19/2024 9:15 AM EDT 09/19/2024 9:15 AM EDT Fadumo ROBB LAB BLOOD ORDERABLES Fin al Result [facility] [address] [place] [address], [place] [phone] * (ABNORMAL) Hemoglobin A1c (09/19/2024 9:15 AM EDT) [facility] Hemoglobin A1C 8.1(H) <6.5 % LAB CHEMISTRY METHOD 09/19/2024 12:35 PM [facility] Mean Bld Glu Estim. 186 mg/dL LAB CHEMISTRY METHOD 09/19/2024 12:35 PM [facility] Blood Venous blood specimen / Unknown Venipuncture / Unknown 09/19/2024 9:15 AM EDT 09/19/2024 9:15 AM EDT us Fadumo ROBB LAB BLOOD ORDERABLES Fin al Result [facility] [address] [place] [address], * (ABNORMAL) Comprehensive metabolic panel (09/19/2024 9:15 AM EDT) Pathologist [facility] [place] Sodium 138 133 - 145 mmol/L LAB CHEMISTRY METHOD 09/19/2024 1:13 PM [facility] Potassium 4.0 3.5 - 5.5 mmol/L LAB CHEMISTRY METHOD 09/19/2024 1:13 PM [facility] Chloride 106 96 - 110 mmol/L LAB CHEMISTRY METHOD 09/19/2024 1:13 PM [facility] CO2 26 21 - 32 mmol/L LAB CHEMISTRY METHOD 09/19/2024 1:13 PM [facility] Anion Gap 6 3 - 11 LAB CHEMISTRY METHOD 09/19/2024 1:13 PM [facility] Glucose 147(H) 70 - 100 mg/dL LAB CHEMISTRY METHOD 09/19/2024 1:13 PM [facility] BUN 17 5 - 25 mg/dL LAB CHEMISTRY METHOD 09/19/2024 1:13 PM [facility] Creatinine 1.04 0.70 - 1.30 mg/dL LAB CHEMISTRY METHOD 09/19/2024 1:13 PM [facility] eGFR 85 >=60 mL/min/1. 73m2 LAB CHEMISTRY METHOD 09/19/2024 1:13 PM T [facility] Comment:Calculation based on the??Chronic Kidney Disease Epidemiology Collaboration (CKD-EPI) equation refit??without adjustment for race. BUN/Creatinine Ratio 16.3 LAB CHEMISTRY METHOD 09/19/2024 1:13 PM T [facility] Calcium 9.7 8.5 - 10.5 mg/dL LAB CHEMISTRY METHOD 09/19/2024 1:13 PM [facility] AST (SGOT) 57(H) 10 - 42 unit/L LAB CHEMISTRY METHOD 09/19/2024 1:13 PM [facility] ALT (SGPT) 102(H) 10 - 60 unit/L LAB CHEMISTRY METHOD 09/19/2024 1:13 PM [facility] Alkaline Phosphatase 141(H) 42 - 121 unit/L LAB CHEMISTRY METHOD 09/19/2024 1:13 PM [facility] Total Protein 7.4 6.0 - 8.0 g/dL LAB CHEMISTRY METHOD 09/19/2024 1:13 PM [facility] Albumin 4.0 3.2 - 5.0 g/dL LAB CHEMISTRY METHOD 09/19/2024 1:13 PM [facility] Total Bilirubin 0.6 0.0 - 1.4 mg/dL LAB CHEMISTRY METHOD 09/19/2024 1:13 PM [facility] Blood Venous blood specimen / Unknown Venipuncture / Unknown 09/19/2024 9:15 AM EDT 09/19/2024 9:15 AM EDT us Fadumo ROBB LAB BLOOD ORDERABLES Fin al Result [facility] [address] [place] [address], [place] [phone] * Colonoscopy (08/29/2020) Colonoscopy No interpretation , Abstracted Anatomical Region Laterality Modality Other Historical Provider HEALTH MAINTENANCE Final Result * Hepatitis C Screening (08/23/2020) Hepatitis C Screening Abstracted Historical Provider HEALTH MAINTENANCE Final Result from Last 3 Months or Most Recently Relevant to Health Maintenance Insurance [facility] Care Teams Door To Door Salesman Relationship Specialty Start Date End Date Mick Calvillo MD [address] [place] [address] PCP - General Internal Medicine 11/04/21
--- OUTSIDE RECORDS SUMMARY | 2024-09-29 17:49 | XMS_ITS | Encounter Summary ---
Author Organization [facility] Address [address] [place] [address] Care Team Providers Care Roll Grinder Name Role Phone Shira Ibarra MD Primary Care Provider Unavailable Mick Calvillo Primary Care Provider [phone] Encounter Details Date Type Department Care Team Description 10/21/2020 Pt. Non Urgent Medic al Question Adult Medicine - [address] [address] Joanna Burkett PA-C Social History Tobacco Use [...] have Coronavirus / COVID-19? No / Unsure 10/24/2020 2:45 PM EDT documented as of this encounter Miscellaneous Notes * Telephone Encounter - Corina Bean L.P.N. - 10/22/2020 8:19 AM EDT From: Cheko Almaraz To: Joanna Burkett PA-C Sent: 10/21/2020 10:50 AM EDT Subject: Med change Hello, I believe we switched my heartburn med to Prilosec, but [facility] continues to give me Pepcid, saying they are the same thing. Is this true. Hope all is well, Stay safe Respectfully, Black documented in this encounter Plan of Treatment Not on file documented as of this encounter Visit Diagnoses Not on filedocumented in this encounter Care Teams Roll Grinder Relationship Specialty Start Date End Date Shira Ibarra MD PCP - General Internal Medicine 05/20/1711/03 Mick Calvillo [address] [place] [id number] PCP - General Internal Medicine 11/04/21 documented as of this encounter
--- OUTSIDE RECORDS SUMMARY | 2024-09-29 17:49 | XMS_ITS | Clinical Summary ---
Author Organization [facility] Address [address] [place] [address] Care Team Providers Care Ticket Maker Name Role Phone Mick Calvillo Primary Care Provider [phone] Allergies Active Allergy Reactions Severity Noted Date Comments Bee Stings Anaphylaxis 06/22/2017 Medications Medication Sig Dispensed Refills Start Date End Date Status Multiple Vitamins-Minerals (MULTIVITAL OR) Take by mouth. 0 Activ e sildenafil (VIAGRA) 100 MG tablet Take 0.5 Tabs by mouth as needed for Erectile Dysfunction. 10 Tab 0 07/09/2020 Active omeprazole (PRILOSEC) 20 MG capsule TAKE 1 CAPSULE BY MOUTH EVERY DAY 90 Capsule 0 03/27/2023 Active atorvastatin (LIPITOR) 20 MG tablet TAKE 1 TABLET BY MOUTH EVERY DAY 90 Tablet 0 04/24/2023 Active Active Problems Problem Noted Date Reflux esophagitis 09/12/2020 Overview: Upper endoscopy-08/26-LA grade B reflux esophagitis, benign-appearing esophageal stenosis, gastritis with hemorrhage, biopsied, small hiatal hernia-PPI to continue. Rectal polyp 09/12/2020 Colon polyps 09/12/2020 Overview: _2020 Gastritis 06/22/2017 Pure hypercholesterolemia 06/22/2017 Overview: Ascvd 3.8%-10% Allergic rhinitis 06/22/2017 DJD (degenerative joint disease) 017 Overview: knees History of substance abuse 05/27/2017 Overview: Marijuana, alcohol, cocaine Immunizations Name Administration Dates Next Due Hepatitis B > 19yrs 01/19/2014,07/21/2013 Hepatitis-A (>19YRS) 01/19/2014,07/21/2013 PPD-Negative Response(External) 02/28/2014 Tdap 05/03/2014 Family History Medical History Relation Name Comments Colon Polyps Brother 1 No Known Problems Brother 2 Hypertension Father CAD, pacemaker, ? CA MS Maternal Grandfather Cancer, Other Maternal Grandmother abdom inal , cataract/glaucoma, HTN Hypertension Mother No Known Problems Paternal Grandfather CA Lung Paternal Grandmother No Known Problems Son MS Uncle Relation Name Status Comments Brother 1 Alive Brother 2 Alive Father Maternal Grandfather Maternal Grandmother Mother Alive Paternal Grandfather Paternal Grandmother Son Alive Uncle Social History Tobacco Use Types Packs/Day Years Used Date Smoking Tobacco: Every Day Cigarettes 1 Smokeless Tobacco: Never Tobacco Cessation:Ready to Q uit: Not Asked; Counseling Given: Not Answered Alcohol Use Standard Drinks/Week Comments Yes 0 (1 standard drink = 0.6 oz pur e alcohol) 2-4 beers daily Sex Assigned at Date Recorded Male 09/04/2021 7:[address] Job Start Date Occupation Industry Not on file Not on file Not on file Last Filed Vital Signs Vital Sign Reading Time Taken Comments Blood Pressure 128/80 09/12/2022 11:26 AM EST Pulse 78 09/12/2022 11:26 AM EST Temperature 36.6 ??C (97.9 ??F) 09/12/2022 11:[address] Respiratory Rate 16 09/12/2022 11:26 AM EST Oxygen Saturation 98% 12/23/2021 1:59 PM EDT Inhaled Oxygen Concentration - - Weight 109.8 kg (242 lb) 09/12/2022 11:26 AM EST Height 190.5 cm (6' 3 ) 09/12/2022 11:26 AM EST Body Mass Index 30.25 09/12/2022 11:26 AM EST Plan of Treatment Health Maintenance Due Date Last Done Comments Covid-19 Vaccine (#1) 01/23/1971 COLON CANCER SCREENING 08/29/2023 08/29/2020 BASELINE HEALTH EXAM 40-64 12/24/202312/232, 12/23/2021, 02/07/2019, Additional history exists TOBACCO CHECK/ADVISE 12/24/2023 12/23/2021, 04/27/2020, 02/04/2019 INFLUENZA (#1) 2024 07/09/2020 (Refu sed), 05/26/2019 (Refused), 05/27/2017 (Refused) BMI CHECK/ADVISE 07/06/2024 09/12/2022, , 12/23/2021 (Completed), Additional history exists DEPRESSION SCREENING/FOLLOWUP 07/06/2024 12/23/2021 (Completed) SOCIAL NEEDS SCREENING 07/06/2024 12/23/2021 (Comple lindsey) DTAP/TDAP/TD (3 - Td or Tdap) 05/27/2026 (External Completion of Vaccination per patient), 05/03/2014 CHOLESTEROL SCREENING 09/17/2027 09/16/2022 , 12/23/2021, 05/08/2021, Additional history exists PNEUMOCOCCAL VACCINE FOR HIG H RISK PATIENTS (#1) 2034 HEPATITIS C SCREENING Completed 08/23/2020 SHINGLES VACCINE Discontinued Care Teams Ticket Maker Relationship Specialty Start Date End Date Mick Calvillo [address] [place] [address] PCP - General Internal Medicine 11/04/21
--- OUTSIDE RECORDS SUMMARY | 2024-09-29 17:49 | XMS_ITS | Encounter Summary ---
Author Organization [facility] Address [address] [place] [address] Care Team Providers Care Transportation Aide Name Role Phone Shira Ibarra MD Primary Care Provider Unavailable Mick Calvillo Primary Care Provider [phone] Reason for Visit * Reason Onset Date Comments TEST RESULTS 07/27/2020 Encounter Details Date Type Department Care Team Description 07/27/2020 Telephone Adult Medicine - [address] [address] Shira Ibarra MD TEST RESULTS Social History Tobacco Use Types Packs/Day Years [...] AM EST documented as of this encounter Miscellaneous Notes * Telephone Encounter - Silvana Davila M.A. - 07/27/2020 10:32 AM EST Pt advised * Telephone Encounter - Katelyn Blackwell - 07/27/2020 9:18 AM EST Inform patient: ANY URGENT OR ABNORMAL RESULTS WIILL RESULT IN A CALL BACK TO THE PATIENT ETHAN. Type of test: Ultrasound Date test was performed: 07/20/20 Where was the test performed: [facility] Who ordered this test?: Shira Ibarra Is the doctor here today?: YES Can the message wait until the doctor returns?: YES IF PATIENT'S PCP IS NOT IN INSTRUCT PATIENT THAT THEY WILL RECEIVE A CALL BACK WHEN THE PCP IS IN THE OFFICE NEXT. documented in this encounter Plan of Treatment Not on file documented as of this encounter Visit Diagnoses Not on filedocumented in this encounter Care Teams Transportation Aide Relationship Specialty Start Date End Date Shira Ibarra MD PCP - General Internal Medicine 05/20/1711/03 Mick Calvillo [address] [place] [id number] PCP - General Internal Medicine 11/04/21 documented as of this encounter
--- OUTSIDE RECORDS SUMMARY | 2024-09-29 17:49 | XMS_ITS | Encounter Summary ---
Author Organization [facility] Address [address] [place] [address] Care Team Providers Care Supervisor Fabrication Name Role Phone Mick Calvillo MD Primary Care Provider [phone] Reason for Referral * Consultation (Routine) - Pending Review Specialty Diagnoses / Procedures Referred By Nichol ariza Referred To Contact Research Attorney / Diabetes Services Diagnoses Newly diagnosed diabetes (CMS/HCC) Fadumo Todd PA [address] [place] [id number] Phone: tel: fax: Referral ID Status Reason Start Date Expiration Date Visits Requested Visits Authorized [id number] Pending Review Specialty Services Required 09/21/2024 09/21/2025 1 1 * Consultation (Routine) - Pending Review Specialty Diagnoses / Procedures Referred By Nichol ariza Referred To Contact Dermatology Diagnoses Adult general medical examination Pure hypercholesterolemia Screening for diabetes mellitus Polyp of colon, unspecified part of colon, unspecified type Multiple atypical skin moles Screening for prostate cancer Metatarsalgia of both feet Fadumo Todd PA [address] [place] [address] Phone: tel: fax: Referral ID Status Reason Start Date Expiration Date Visits Requested Visits Authorized [id number] Pending Review Specialty Services Required 09/19/2024 09/19/2025 1 1 * Consultation (Routine) - Pending Review Specialty Diagnoses / Procedures Referred By Nichol ariza Referred To Contact Ophthalmology Diagnoses Adult general medical examination Pure hypercholesterolemia Screening for diabetes mellitus Polyp of colon, unspecified part of colon, unspecified type Multiple atypical skin moles Screening for prostate cancer Metatarsalgia of both feet Fadumo Todd PA [address] [place] [address] Phone: tel: fax: Referral ID Status Reason Start Date Expiration Date Visits Requested Visits Authorized [id number] Pending Review Specialty Services Required 09/19/2024 09/19/2025 1 1 * Consultation (Routine) - Authorized Specialty Diagnoses / Procedures Referred By Nichol ariza Referred To Contact Podiatry Diagnoses Adult general medical examination Pure hypercholesterolemia Screening for diabetes mellitus Polyp of colon, unspecified part of colon, unspecified type Multiple atypical skin moles Screening for prostate cancer Metatarsalgia of both feet Fadumo Todd PA [address] [place] [address] Phone: tel: fax: [facility]. Orthopedics [address] [place] [address] Kameron Chris. [address] [place], [place] Phone: tel: Referral ID Status Reason Start Date Expiration Date Visits Requested Visits Authorized [id number] Authorized Specialty Services Required 09/19/2024 09/19/2025 1 1 * Consultation (Routine) - Denied Specialty Diagnoses / Procedures Referred By Nichol ariza Referred To Contact Gastroenterology Diagnoses Adult general medical examination Pure hypercholesterolemia Screening for diabetes mellitus Fadumo Todd PA [address] [place] [address] Phone: tel: fax: Gastroenterology - [place] 175 [facility] 175 [facility] [address] [place] [address] Phone: tel: fax: Referral ID Status Reason Start Date Expiration Date V isits Requested Visits Authorized [id number] Denied Specialty Services Required 09/19/2024 09/19/2025 1 0 Reason for Visit * Reason Comments Annual Exam Encounter Details Date Type Department Care Team (Late st Contact Info) Description 09/19/2024 8:30 AM EDT [place] [facility] [address] [place] [address] Fadumo Todd PA [address] [place] [address] Adult general medical examination (Primary Dx); Metatarsalgia of both feet; Pure hypercholesterolemia ; Polyp of colon, unspecified part of colon, unspecified type; Multiple atypical skin moles; Screening for prostate cancer; Screening for diabetes mellitus; Newly diagnosed diabetes ([facility]) Social History Tobacco Use Types Packs/Day Years [...] care for your loved ones. For example, child care sitter or elderly care for an older adult? [...] on file Sexual Orientation Not on file documented as of this encounter Last Filed Vital Signs Vital Sign Reading [...] Mass Index 37.12 09/19/2024 8:33 AM EDT documented in this encounter Ordered Prescriptions Prescription Sig Dispense Quantity Refills Last Filled Start Date End Date metFORMIN XR (GLUCOPHAGE-XR) 500 mg 24 hr tablet Take 1 tablet (500 mg total) by mouth 1 (one) time each day with breakfast. Do not crush, chew, or split. 90 tablet 1 09/21/2024 omeprazole (PriLOSEC) [address] capsule Take 1 capsule (20 mg total) by mouth 1 (one) time each day. Do not crush or chew. 90 capsule 1 09/19/2024 documented in this encounter Progress Notes * CEZAR Agarwal - 09/19/2024 8:30 AM EDTAddended by: FADUMO TODD on: 09/19/2024 07:02 PM Modules accepted: Orders * CEZAR Agarwal - 09/19/2024 8:30 AM EDTAddended by: FADUMO TODD on: 09/21/2024 02:19 PM Modules accepted: Orders * CEZAR Agarwal - 09/19/2024 8:30 AM EDT CHIEF COMPLAINT: Annual Exam IDENTIFIER: Cheko Almaraz is a 54 y.o. old male who presents for evaluation of general medical health. HPI: Complaints at today's visit: Patient presents today for routine physical exam. He has history of metatarsalgia and bilateral lower extremities and he was previously following up with human resources analyst at [facility]. He is requesting a new referral. Podiatry referral was placed today. He is following up with [facility] crime data specialist for ongoing right lateral epicondylitis, Worker's Compensation case. Patient with history of colon polyps, his last colonoscopy was in 2014, he is due for repeat and I will place a referral for him to follow-up with GI. Patient's PHQ-9: (Patient-Rptd) 8 , and not interested in any interventions at this time. No SI or HI. Chronic medical illnesses: hypercholesterolemia, GERD with esophagitis, DJD, allergic rhinitis, right lateral epicondylitis Patient does not try to eat a balanced diet, does not exercise regularly Patient does smoke, patient does not drink alcohol in excess, patient does not use street drugs, patient does not drink caffeinated beverages in excess. Currently smokes 1-2 cig/day and vaping throughout day. Social drinker. Patient is sexually active. Reports one partners. Declined STD testing. Health Maintenance: He was referred to gastroenterology for repeat colonoscopy, last colonoscopy in 2014. Td was updated today by medical writer. We will update his pneumonia vaccine at next follow-up visit. PSA ordered today. Ophthalmology referral ordered. He is up to date with dentist follow up. ROS: GENERAL: No malaise, significant weight loss or fever HEENT: No changes in hearing or vision, nose bleeds or other nasal problems NECK: No lumps, goiter, pain or significant neck swelling RESPIRATORY: No cough, wheezing or shortness of breath CARDIOVASCULAR: No chest pain, leg swelling or palpitations GI: No abdominal discomfort, blood in stools or black stools : No dysuria, frequency or incontinence MUSCULOSKELETAL: No joint pain or swelling, back pain, or muscle pain. SKIN: No lesions, rash or itching PSYCH: No sleep disturbance, mood disorder or recent psychosocial stressors. HEMATOLOGY/LYMPHOLOGY No prolonged bleeding, easy bruisability or swollen nodes ENDOCRINE: No cold or heat intolerance, polyuria, polydipsia or goiter. NEURO: No persistent headache, syncope, seizures, weakness or numbness PAST MEDICAL HISTORY: Patient Active Problem List Diagnosis Date Noted Metatarsalgia of both feet 09/19/2024 Colon polyps 09/12/2020 Reflux esophagitis 09/12/2020 Allergic rhinitis 06/22/2017 DJD (degenerative joint disease) 06/22/2017 Gastritis 06/22/2017 Pure hypercholesterolemia 06/22/2017 History of substance abuse (CMS/HCC) 05/27/2017 Past Surgical History: Procedure Laterality Date OTHER SURGICAL HISTORY PROCEDURE: DENIES PREVIOUS SURGERY Most Recent Immunizations Administered Date(s) Administered Hepatitis A Adult (Havrix; Vaqta) 19yo and older 01/19/2014 Hepatitis B (Trqqtwr-N-Wybgr, Recombivax HB-Adult) 19yo and older 01/19/2014 Td Tetanus diptheria, preservative free (Tenivac) 7yo and older 09/19/2024 Tdap Tetanus diptheria acellular pertussis (Boostrix; Adacel) 7yo and older 05/03/2014 HEALTH MAINTENANCE: Health Maintenance Topic Date Due COVID-19 Vaccine (1) Never done Pneumococcal Vaccine: Pediatrics (0 to 5 Years) and At-Risk Patients (6 to 64 Years) (1 of 2 - PCV)Never done Pneumococcal Vaccine: 50+ Years (1 of 2 - PCV) Never done Zoster Vaccines (1 of 2) Never done Hepatitis B Vaccines (3 of 3 - 19+ 3-dose series) 03/16/2014 Influenza Vaccine (1) 01/02/2025 (Originally 03/06/2024) Depression Screening 09/18/2025 Social Influencers of Health Screening 09/18/2025 Cholesterol Screening (Lipid Panel) 09/17/2027 Colorectal Cancer Screening: Colonoscopy 08/29/2030 DTaP,Tdap,and Td Vaccines (3 - Td or Tdap) 09/19/2034 Hepatitis C Screening Completed HIB Vaccines Aged Out IPV Vaccines Aged Out Hepatitis A Vaccines Aged Out MMR Vaccines Aged Out Varicella Vaccines Aged Out Meningococcal ACWY Vaccine Aged Out Meningococcal B Vacine Aged Out HPV Vaccines Aged Out RSV Immunization Patients Under 20 months Aged Out HIV Screening Discontinued SOCIAL HISTORY: Social History Tobacco Use Smoking status: Some Days Current packs/day: 1.00 Types: Cigarettes Smokeless tobacco: Never Substance Use Topics Alcohol use: Yes FAMILY HISTORY: Family History Problem Relation Name Age of Onset No Known Problems Paternal Grandfather Hypertension Mother Hypertension Father CAD, pacemaker, ? CA Colon polyps Brother No Known Problems Brother Other cancer Maternal Grandmother abdominal , cataract/glaucoma, HTN Lung cancer Paternal Grandmother Heart attack Maternal Grandfather Heart attack Uncle 34.00 No Known Problems Son Family Status Relation Name Status PGF Mother Alive Father Brother Alive Brother Alive MGM PGM MGF Uncle Son Alive No partnership data on file MEDICATIONS DISCONTINUED/REORDERED: Medications Discontinued During This Encounter Medication Reason omeprazole (PriLOSEC) [address] capsule Reorder ACTIVE MEDICATIONS: Outpatient Medications Marked as Taking for the 09/19/24 encounter (Office Visit) with CEZAR Agarwal Medication Sig Dispense Refill atorvastatin (LIPITOR) 20 mg tablet TAKE 1 TABLET BY MOUTH EVERY DAY FA/mv,Ca,iron,min/lycopene/lut (MULTIVITAL ORAL) Take by mouth. omeprazole (PriLOSEC) [address] capsule Take 1 capsule (20 mg total) by mouth 1 (one) time each day.Do not crush or chew. 90 capsule 1 sildenafiL (VIAGRA) 100 mg tablet Take 0.5 Tabs by mouth as needed for Erectile Dysfunction. [DISCONTINUED] omeprazole (PriLOSEC) [address] capsule TAKE 1 CAPSULE BY MOUTH EVERY DAY ALLERGIES: Allergies Allergen Reactions Bee Venom Protein (Honey Bee) Anaphylaxis Bee Stings PHYSICAL EXAM: Vitals: 09/19/24 0833 BP: 123/87 Pulse: 93 Resp: 14 Temp: 36.7 ??C (98.1 ??F) Body mass index is 37.12 kg/m??. APPEARANCE: Alert and in no acute distress EYES: PERRLA, conjunctiva and sclera normal. Normal fundal exam. EARS: External ears normal. Canals clear. TMs normal. NOSE/SINUS: Nares normal. Septum midline. Mucosa normal. No drainage or sinus tenderness. MOUTH/THROAT: no erythema or exudates NECK: Neck supple, no adenopathy, thyroid symmetric and of normal size HEART: RRR with normal S1 and S2, no murmurs, no gallops, no JVD appreciated CHEST: non-tender LUNG: clear to auscultation LYMPH NODES: grossly normal ABDOMEN: Bowel sounds normoactive, no bruits, soft, non-tender, without organomegaly or palpable masses (MALE): No scrotal swelling BACK: No pain to palpation with good flexion and extension EXTREMITIES: Extremities warm and well perfused without clubbing, cyanosis, or edema NEURO: Awake, alert and oriented x 3. No focal neurological deficits SKIN: Skin color, texture, turgor normal. No rashes or lesions. LABS: Results for orders placed or performed in visit on 06/13/24 Hepatitis C Screening Collection Time: 08/23/20 12:00 AM Result Value Ref Range Hepatitis C Screening Abstracted Colonoscopy Collection Time: 08/29/20 12:00 AM Result Value Ref Range Colonoscopy No interpretation, Abstracted Lipid panel Collection Time: 09/16/22 12:00 AM Result Value Ref Range LDL/HDL Ratio 6 (A) 0 - 4 Triglycerides 430 (A) 0 - 150 mg/dL Cholesterol 232 (A) 0 - 200 mg/dL HDL 40 >=40 mg/dL LDL Cholesterol 106 (A) 0 - 100 mg/dL Annual [facility] Blood Test Collection Time: 09/16/22 12:00 AM Result Value Ref Range Annual [facility] Blood Test Abstracted IMPRESSION: 1. Adult general medical examination 2. Metatarsalgia of both feet 3. Pure hypercholesterolemia 4. Polyp of colon, unspecified part of colon, unspecified type 5. Multiple atypical skin moles 6. Screening for prostate cancer 7. Screening for diabetes mellitus PLAN: 1. Health maintenance reviewed. Routine labs ordered as below. 2. Patient with metatarsalgia in bilateral feet and neuropathy. I will place a referral for him to follow-up with podiatry. 3. His last LDL was 106. He has been off of Lipitor 20 mg daily for several months now. Will repeatlipid panel and restart her medication as needed. Dietary changes discussed. Encouraged to do routine exercise. 4. I will place a referral for him to follow-up with GI for repeat colonoscopy 5. I we will place a referral for him to follow-up with dermatology for routine skin routine. 6. PSA ordered today. 7. Diabetes screening ordered. 8. Follow-up in 6 months for routine medication review with PCP/team. Genetic cancer syndrome screening: reviewed Patient was recommended to see the Dentist and eye doctor at least once a year I offered STD testing to the patient, declined Discussed healthy dietary choices. Discussed increasing dietary fiber through fruits, veggies, whole grains. Advised the patient to exercise 30mins a day most days of the week. Advised patient to use sunscreen, hats, clothing while outdoors in direct sunlight. Advised patient to wear a seatbelt while in the car. Advised the patient to check smoke/fire alarms at home regularly. Testicular self exams regularly for testicular cancer screening. Discussed safe sex practices I have reviewed the following sections of the chart: Past Medical History Family History Social History Advised the patient to call me if any problems. Patient understands the plan. Patient is in agreement with the plan. Orders Placed This Encounter Procedures Td Tetanus diptheria, preservative free (Tenivac) 7yo and older Hemoglobin A1c CBC and differential Comprehensive metabolic panel Thyroid stimulating hormone with reflex to free t4 and free t3 Magnesium Lipid panel with reflex to direct LDL Prostate specific antigen screen Ambulatory referral to Gastroenterology Ambulatory referral to Podiatry Ambulatory referral to Ophthalmology Ambulatory referral to Dermatology TD TETANUS DIPTHERIA, PRESERVATIVE FREE (TENIVAC) 7YO AND OLDER AMB REFERRAL TO GASTROENTEROLOGY AMB REFERRAL TO PODIATRY AMB REFERRAL TO OPHTHALMOLOGY AMB REFERRAL TO DERMATOLOGY CEZAR Agarwal on 09/19/2024 at 1:03 PM EDT documented in this encounter Plan of Treatment Upcoming Encounters Date Type Department Care Team (Late st Contact Info) Description 12/23/2024 9:30 AM EDT [place] [facility] [address] [place] [address] Fadumo Todd PA [address] [place] [address] 01/03/2025 12:30 PM EDT Appointment [facility] [address] [place] [id number] Ravi Bear MD [address] [address] Scheduled Orders Name Type Priority Associated Diagnoses Orde r Schedule Prostate specific antigen screen Lab Routine Screening for prostate cancer Expected: 09/19/2024, Expires: 09/19/2025 Scheduled Referrals Name Type Priority Associated Diagnoses Order Schedule Ambulatory referral to Gastroenterology Outpatient Referral Routine Adult general medical examination Pure hypercholesterolem ia Screening for diabetes mellitus 1 Occurrences starting 09/19/2024 until 09/19/2025 Ambulatory referral to Podiatry Outpatient Referral Routine Adult general medical examination Pure hypercholesterolem ia Screening for diabetes mellitus Polyp of colon, unspecified part of colon, unspecified type Multiple atypical skin moles Screening for prostate cancer Metatarsalgia of both feet 1 Occurrences starting 09/19/2024 until 09/19/2025 Ambulatory referral to Ophthalmology Outpatient Referral Routine Adult general medical examination Pure hypercholesterolem ia Screening for diabetes mellitus Polyp of colon, unspecified part of colon, unspecified type Multiple atypical skin moles Screening for prostate cancer Metatarsalgia of both feet 1 Occurrences starting 09/19/2024 until 09/19/2025 Ambulatory referral to Dermatology Outpatient Referral Routine Adult general medical examination Pure hypercholesterolem ia Screening for diabetes mellitus Polyp of colon, unspecified part of colon, unspecified type Multiple atypical skin moles Screening for prostate cancer Metatarsalgia of both feet 1 Occurrences starting 09/19/2024 until 09/19/2025 Ambulatory referral to Diabetic Education Outpatient Referral Routine Newly diagnosed diabetes (CMS/HCC) 1 Occurrences starting 09/21/2024 until 09/21/2025 documented as of this encounter Results * (ABNORMAL) Lipid panel with reflex to direct LDL (09/19/2024 9:15 AM EDT) Cholesterol 234(H) 0 - 200 mg/dL LAB CHEMISTRY METHOD 09/19/2024 1:13 PM EDT [facility] Triglycerides 272(H) 0 - 150 mg/dL LAB CHEMISTRY METHOD 09/19/2024 1:13 PM EDT [facility] HDL 45 >=40 mg/dL LAB CHEMISTRY METHOD 09/19/2024 1:13 PM EDT [facility] LDL Calculated 135(H) 0 - 100 mg/dL LAB CHEMISTRY METHOD 09/19/2024 1:13 PM EDT [facility] VLDL Cholesterol Jason 54.4 mg/dL LAB CHEMISTRY METHOD 09/19/2024 1:13 PM EDT [facility] Non HDL Chol. (LDL+VLDL) 189(H) <145 mg/dL LAB CHEMISTRY METHOD 09/19/2024 1:13 PM EDT [facility] Chol/HDL Ratio 5.2(H) 0.0 - 4.4 LAB CHEMISTRY METHOD 09/19/2024 1:13 PM EDT [facility] Blood Venous blood specimen / Unknown Venipuncture / Unknown 09/19/2024 9:15 AM EDT 09/19/2024 9:15 AM EDT Fadumo ROBB LAB BLOOD ORDERABLES Fin al Result [facility] [address] [place] [address], [place] [phone] * Magnesium (09/19/2024 9:15 AM EDT) Pathologist [facility] Magnesium 2.3 1.9 - 2.6 mg/dL LAB CHEMISTRY METHOD 09/19/2024 1:00 PM EDT [facility] Blood Venous blood specimen / Unknown Venipuncture / Unknown 09/19/2024 9:15 AM EDT 09/19/2024 9:15 AM EDT Fadumo ROBB LAB BLOOD ORDERABLES Fin al Result Performing Organization Address City/[facility]/ZIP Co de Phone Number [facility] [address] [place] [address], [place] [phone] * Thyroid stimulating hormone with reflex to free t4 and free t3 (09/19/2024 9:15 AM EDT) [facility] TSH 1.91 0.40 - 4.00 mcIU/mL LAB CHEMISTRY METHOD 09/19/2024 1:08 PM EDT [facility] Blood Venous blood specimen / Unknown Venipuncture / Unknown 09/19/2024 9:15 AM EDT 09/19/2024 9:15 AM EDT Fadumo ROBB LAB BLOOD ORDERABLES Fin al Result [facility] [address] [place] [address], [place] [phone] * (ABNORMAL) Comprehensive metabolic panel (09/19/2024 9:15 AM EDT) Pathologist [facility] Sodium 138 133 - 145 mmol/L LAB CHEMISTRY METHOD 09/19/2024 1:13 PM EDT [facility] Potassium 4.0 3.5 - 5.5 mmol/L LAB CHEMISTRY METHOD 09/19/2024 1:13 PM [facility] Chloride 106 96 - 110 mmol/L LAB CHEMISTRY METHOD 09/19/2024 1:13 PM [facility] CO2 26 21 - 32 mmol/L LAB CHEMISTRY METHOD 09/19/2024 1:13 PM [facility] Anion Gap 6 3 - 11 LAB CHEMISTRY METHOD 09/19/2024 1:13 PM [facility] Glucose 147(H) 70 - 100 mg/dL LAB CHEMISTRY METHOD 09/19/2024 1:13 PM [facility] BUN 17 5 - 25 mg/dL LAB CHEMISTRY METHOD 09/19/2024 1:13 PM [facility] Creatinine 1.04 0.70 - 1.30 mg/dL LAB CHEMISTRY METHOD 09/19/2024 1:13 PM [facility] eGFR 85 >=60 mL/min/1. 73m2 LAB CHEMISTRY METHOD 09/19/2024 1:13 PM [facility] Comment:Calculation based on the??Chronic Kidney Disease Epidemiology Collaboration (CKD-EPI) equation refit??without adjustment for race. BUN/Creatinine Ratio 16.3 LAB CHEMISTRY METHOD 09/19/2024 1:13 PM [facility] Calcium 9.7 8.5 - 10.5 mg/dL LAB CHEMISTRY METHOD 09/19/2024 1:13 PM [facility] AST (SGOT) 57(H) 10 - 42 unit/L LAB CHEMISTRY METHOD 09/19/2024 1:13 PM [facility] ALT (SGPT) 102(H) 10 - 60 unit/L LAB CHEMISTRY METHOD 09/19/2024 1:13 PM [facility] Alkaline Phosphatase 141(H) 42 - 121 unit/L LAB CHEMISTRY METHOD 09/19/2024 1:13 PM [facility] Total Protein 7.4 6.0 - 8.0 g/dL LAB CHEMISTRY METHOD 09/19/2024 1:13 PM EDT [facility] Albumin 4.0 3.2 - 5.0 g/dL LAB CHEMISTRY METHOD 09/19/2024 1:13 PM EDT [facility] Total Bilirubin 0.6 0.0 - 1.4 mg/dL LAB CHEMISTRY METHOD 09/19/2024 1:13 PM EDT [facility] Blood Venous blood specimen / Unknown Venipuncture / Unknown 09/19/2024 9:15 AM EDT 09/19/2024 9:15 AM EDT Fadumo ROBB LAB BLOOD ORDERABLES Fin al Result Performing Organization Address [facility]/ZIP Co de Phone Number [facility] [address] [place] [address], [place] [phone] * (ABNORMAL) Hemoglobin A1c (09/19/2024 9:15 AM EDT) Hemoglobin A1C 8.1(H) <6.5 % LAB CHEMISTRY METHOD 09/19/2024 12:35 PM EDT [facility] Mean Bld Glu Estim. 186 mg/dL LAB CHEMISTRY METHOD 09/19/2024 12:35 PM EDT [facility] Blood Venous blood specimen / Unknown Venipuncture / Unknown 09/19/2024 9:15 AM EDT 09/19/2024 9:15 AM EDT Fadumo ROBB LAB BLOOD ORDERABLES Fin al Result [facility] [address] [place] [address], [place] [phone] documented in this encounter Visit Diagnoses Diagnosis Adult general medical examination- Primary Unspecified general medical examination Metatarsalgia of both feet Pure hypercholesterolemia Polyp of colon, unspecified part of colon, unspecified type Multiple atypical skin moles Screening for prostate cancer Special screening for malignant neoplasm of prostate Screening for diabetes mellitus Newly diagnosed diabetes (CMS/HCC) Type II or unspecified type diabetes mellitus without mention of complication, not stated as uncontrolled documented in this encounter Discontinued Medications Medication Sig Discontinue Reason Start Date End Da te omeprazole (PriLOSEC) [address] capsule TAKE 1 CAPSULE BY MOUTH EVERY DAY Reorder 03/27/2023 09/19/2024 documented as of this encounter Orders Immunization/Injection Count Last Ordered Date First Ordered Date TD TETANUS DIPTHERIA, PRESER VATIVE FREE (TENIVAC) 7YO AND OLDER 1 09/19/2024 documented in this encounter Additional Health Concerns Assessment Noted Time PHQ-9 Depression Total Score: 8 09/19/19 25 9:48 AM EDT documented as of this encounter Care Teams Supervisor Fabrication Relationship Specialty Start Date End Date Mick Calvillo MD [address] [place] [address] PCP - General Internal Medicine 11/04/21 documented as of this encounter
--- OUTSIDE RECORDS SUMMARY | 2024-09-29 17:49 | XMS_ITS | Encounter Summary ---
Author Organization [facility] Address [address] [place] [address] Care Team Providers Care Animal Nursery Worker Name Role Phone Shira Ibarra MD Primary Care Provider Unavailable Mick Calvillo Primary Care Provider [phone] Encounter Details Date Type Department Care Team Description 08/31/2020 Orders Only Medical Records [address] [place] [address] Carly Bear MD [address] [place] [address] Social History Tobacco Use Types Packs/Day Years Used Date Smoking Tobacco: Every Day Cigarettes 0.5 Smokeless Tobacco: Never Alcohol Use Standard Drinks/Week Comments No 0 (1 standard drink = 0.6 oz pur e alcohol) Sex Assigned at Date Recorded Male 09/04/2021 7:46 AM EST Job Start Date Occupation Industry Not on file Not on file Not on file COVID-19 Exposure Response Date Recorded In the last month, have you been in contact with someone who was confirmed or suspected to have Coronavirus / COVID-19? No / Unsure 08/23/2020 8:21 AM EST documented as of this encounter Progress Notes * Ravi Bear MD - 09/09/2020 3:57 PM EST Dear Cheko, The polyp(s) that were removed during your colonoscopy were precancerous, but benign. Fortunately, we removed them and therefore, they will not cause any more problems in the future. Based on the number, the size, and the features of the polyp(s) removed, I recommend a follow-up colonoscopy in 3 years. Before, the 3 years are due, we will send you a reminder in the mail asking you to contact our office to have the colonoscopy scheduled. The biopsies of the stomach are within normal limits. Please follow-up at the clinic at your convenience. I would like to personally thank you for allowing us to take care of you. Please don't hesitate to call us for any questions or concerns. Regards, Brittani Bear MD Board Certified Gastroenterology and Internal Medicine Transplant Hepatology [facility] documented in this encounter Plan of Treatment Not on file documented as of this encounter Procedures Procedure Name Priority Date/Time Associated Diagnosis Comments OUTSIDE PATHOLOGY Routine 08/29/2020 documented in this encounter Results * OUTSIDE PATHOLOGY (08/29/2020) Carly Bear MD OUTSIDE LAB documented in this encounter Visit Diagnoses Not on filedocumented in this encounter Care Teams Animal Nursery Worker Relationship Specialty Start Date End Date Shira Ibarra MD PCP - General Internal Medicine 05/20/1711/03 Mick aClvillo [address] [place] [id number] PCP - General Internal Medicine 11/04/21 documented as of this encounter
--- OUTSIDE RECORDS SUMMARY | 2024-09-29 17:49 | XMS_ITS | Encounter Summary ---
Author Organization [facility] Address [address] [place] [address] Care Team Providers Care Wire Bender Name Role Phone Shira Ibarra MD Primary Care Provider Unavailable Mick Calvilol Primary Care Provider [phone] Encounter Details Date Type Department Care Team Description 08/29/2020 Hospital Medical Records [address] [place] [address] Carly Bear MD [address] [place] [address] Social History Tobacco Use Types Packs/Day Years [...] on filedocumented in this encounter Care Teams Wire Bender Relationship Specialty Start Date End Date Shira Ibarra MD PCP - General Internal Medicine 05/20/1711/03 Mick Calvillo [address] [place], [place] [id number] PCP - General Internal Medicine 11/04/21 documented as of this encounter
== END 2024-09-29 14:13 | disposition home or self-care (01) ==
LOC: HO.NEURO 14:12
PROVIDERS: Visit Provider Orthopaedic Surgery
DX: G56.31 Lesion of radial nerve, right upper limb (principal)
CPT/HCPCS: 95886; 95909

== ENCOUNTER → 2024-09-29 14:15 | Outpatient (BNV) | payer OTHER, SELFPAY | PROVIDERS: Visit Provider Physical Medicine & Rehabilitation | DX: R20.0 Anesthesia of skin (principal); R20.2 Paresthesia of skin; M21.331 Wrist drop, right wrist | CPT/HCPCS: 95886; 95909 ==

== ENCOUNTER 2024-11-08 13:29 | Outpatient (AMB) | payer OTHER, SELFPAY ==
--- NOTE | 2024-11-08 13:42 | A.OFFVIS_ITS ---
Vital Signs 11/08/24 13:46 Height 6 ft 3 in Weight 300 lb BMI 37.5 Intake Visit Reasons: OV-EMG review of his right elbow Intake Note: Cheko 54 yr old male presents today for a follow up visit for his EMG review of his right hand. IMPRESSION: 1. This is an abnormal study. 2. 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 3. There is no electrodiagnostic evidence for median neuropathy, ulnar neuropathy, brachial plexopathy, or cervical radiculopathy. Allergies bee pollen [BEE STINGS] Allergy (Unknown, Verified 07/13/24 10:34) SWELL UP HPI HPI OV-EMG review of his right elbow: Details: Cheko is a 54 year old right hand dominant man who presents for a NCS review of his right hand tingling He complains of tingling in the dorsal radial hand & forearm. He describes this as pins & needles . He says this is affected by different motions & uses of his wrist, but he is not able to identify consistent causes. He has a Hx of right lateral epicondylitis, S/P debridement by Dr. Shrestha, DOS: 02/10/24. He continues to have pain & difficulties with heavy lifting & grasping activities. He was declared at MMI by Dr. Shrestha on 08/29/24. This was a work related condition, which began after a pulling activity at work, and he is currently out of work while dealing with workman's comp. He says this tingling sensation began after receiving his first PRP injection for his tennis elbow. He says he had pain over his lateral epicondyle for ~15 hours, which did not extend into his forearm. He says there was healing seen when receiving his second PRP injection, and this injection did not cause him any more pain. He has had limited relief from both several PT & OT appointments. 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 Review of Systems Const All systems reviewed & are unremarkable except as noted in HPI and below Physical Exam Vital Signs: BMI result Body Mass Index 37.5 Const General: cooperative, healthy appearing and no acute distress Orientation/consciousness: patient oriented x3 HEENT Head: Yes normocephalic and Yes atraumatic Eyes EOM: EOMs intact bilaterally Resp Effort & Inspection: normal respiratory effort and able to speak in complete sentences Cardio Jugular venous distension: no JVD Skin General skin exam: turgor normal Rashes: no rashes Neuro General: patient oriented x3 Extrem Other: Evaluation of Right Upper Extremity: The patient is alert, oriented, and in no acute distress Neuro: Median, Ulnar, Radial nerves motor and sensory intact and sensation is normal to the tips of all digits No thenar or intrinsic wasting Good APB muscle belly firing and good finger cross Vascular: Cap refill brisk ROM: He can make a fist and extend all his digits Skin: No lacerations or abrasions. General: No Ecchymosis. No Erythema or evidence of infection. Strong finger & wrist extension, symmetrical with other side No pain with resisted extension of thumb, index, middle, ring, and small fingers Some pain referred to lateral epicondyle with resisted wrist extension No increase in pain or tingling with resisted supination or pronation of the forearm Nerve Conduction Study: IMPRESSION: 1. This is an abnormal study. 2. 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 3. There is no electrodiagnostic evidence for median neuropathy, ulnar neuropathy, brachial plexopathy, or cervical radiculopathy. Addie Hernandez MD, AUGUST 09/29/24 Psych Appearance: grossly normal Affect: normal affect Attitude: cooperative Assessment & Plan Assessment & Plan (1) Radial nerve irritation: Code(s): G56.30 - Lesion of radial nerve, unspecified upper limb Category: Medical (2) Right lateral epicondylitis: Code(s): M77.11 - Lateral epicondylitis, right elbow Category: Medical (3) Elbow pain, right: Onset Date: ~09/08/22 Code(s): M25.521 - Pain in right elbow Category: Medical Plan Assessment & Plan: 1. Right radial hand tingling 2. Right lateral epicondylitis, S/P debridement DOS: 02/10/[address] Shrestha Declared MMI on 08/29/24 He continues to have pain & difficulty with heavy lifting & gripping activities I had a long discussion with him concerning these conditions No operative intervention indicated at this time I recommend activity modification at this time. He should limit or avoid activities which cause his symptoms. Dr. Shrestha has noted that the patient should avoid jobs with heavy or repetitive lifting activities There has been no change in the tingling in the radial aspect of his hand. He should limit or avoid any heavy lifting or gripping activities I will speak with Dr. Torres for more details concerning his NCS results I discussed his future work prospects with him, and I recommend he look into jobs that he can avoid heavy lifting activities I was initially going to have him follow up PRN. Upon further consideration I am going to have him follow up in about 8 weeks to see how he is doing. Workload sent to [place]. He is continuing to have difficulty, might consider MRI of proximal forearm/elbow. We can evaluate possible inflammation were compression of the radial nerve, and also the posterior interosseous. However, compression or involvement of the posterior interosseous nerve would not result in numbness in the superficial radial nerve distribution. In any case, consider MRI if indicated. Please note that greater than 55 minutes was spent with this patient going over the history, evaluating the patient and radiographs, formulating possible treatment options, discussing them with the patient, and documenting the visit. Scribed for Joanna Grimes MD by Denny Malloy, certified medical technician assistant, on 11/08/24 at 2:05 PM, EST. Coding Level of Care Code Est Pt Level 5 (47998) Diagnoses Radial nerve irritation G56.30 Right lateral epicondylitis M77.11 Elbow pain, right M25.521
[2024-11-08 13:46] VITALS: BMI 37.5
--- OUTSIDE RECORDS SUMMARY | 2024-11-08 14:45 | XMS_ITS | Encounter Summary ---
Author Organization [facility] Address [address] [place] [address] Care Team Providers Care Traffic Court Magistrate Name Role Phone Shira Ibarra MD Primary Care Provider Unavailable Mick Calvillo Primary Care Provider [phone] Encounter Details Date Type Department Care Team Description 03/30/2018 Cigarette And Filter Chief Inspector Report Medical Records [address] [place] [address] Malika Cruz PA-C Social History Tobacco Use [...] on filedocumented in this encounter Care Teams Traffic Court Magistrate Relationship Specialty Start Date End Date Shira Ibarra MD PCP - General Internal Medicine 05/20/1711/03 Mick Calvillo [address] [place], [place] [phone] PCP - General Internal Medicine 11/04/21 documented as of this encounter
--- OUTSIDE RECORDS SUMMARY | 2024-11-08 14:45 | XMS_ITS | Encounter Summary ---
Author Organization [facility] Address [address] [place] [address] Care Team Providers Care Photo Mask Inspector Name Role Phone Shira Ibarra MD Primary Care Provider Unavailable Mick Calvillo Primary Care Provider [phone] Encounter Details Date Type Department Care Team Description 09/16/2017 Fourth Grade Teacher Report Medical Records [address] [place] [address] Ian Todd MD Social History Tobacco Use Types Packs/Day [...] on filedocumented in this encounter Care Teams Photo Mask Inspector Relationship Specialty Start Date End Date Shira Ibarra MD PCP - General Internal Medicine 05/20/1711/03 Mick Calvillo [address] [place], [place] [phone] PCP - General Internal Medicine 11/04/21 documented as of this encounter
--- OUTSIDE RECORDS SUMMARY | 2024-11-08 14:45 | XMS_ITS | Encounter Summary ---
Author Organization [facility] Address [address] [place] [address] Care Team Providers Care Medical Dir Name Role Phone Mick Calvillo Primary Care Provider [phone] Encounter Details Date Type Department Care Team Description 07/24/2023 Export Documents Clerk Report Medical Records [address] [place] [address] Jesus Shrestha MD Social History Tobacco Use [...] on filedocumented in this encounter Care Teams Medical Dir Relationship Specialty Start Date End Date Mick Calvillo [address] [place], [place] [phone] PCP - General Internal Medicine 11/04/21 documented as of this encounter
--- OUTSIDE RECORDS SUMMARY | 2024-11-08 14:45 | XMS_ITS | Encounter Summary ---
Author Organization [facility] Address [address] [place] [address] Care Team Providers Care Manager Plumbing Name Role Phone Shira Ibarra MD Primary Care Provider Unavailable Mick Calvillo Primary Care Provider [phone] Encounter Details Date Type Department Care Team Description 10/21/2020 Pt. Non Urgent Medic al Question Adult Medicine - [address] [address] Joanna Burkett PA-C Social History Tobacco Use [...] on filedocumented in this encounter Care Teams Manager Plumbing Relationship Specialty Start Date End Date Shira Ibarra MD PCP - General Internal Medicine 05/20/1711/03 Mick Calvillo [address] [place] [address] PCP - General Internal Medicine 11/04/21 documented as of this encounter
--- OUTSIDE RECORDS SUMMARY | 2024-11-08 14:45 | XMS_ITS | Encounter Summary ---
Author Organization [facility] Address [address] [place] [address] Care Team Providers Care Ross Furnace Operator Name Role Phone Mick Calvillo Primary Care Provider [phone] Encounter Details Date Type Department Care Team Description 09/14/2023 Traffic Enumerator Report Medical Records [address] [place] [address] Jesus Shrestha MD Social History Tobacco Use [...] on filedocumented in this encounter Care Teams Ross Furnace Operator Relationship Specialty Start Date End Date Mick Calvillo [address] [place], [place] [phone] PCP - General Internal Medicine 11/04/21 documented as of this encounter
--- OUTSIDE RECORDS SUMMARY | 2024-11-08 14:45 | XMS_ITS | Encounter Summary ---
Author Organization [facility] Address [address] [place] [address] Care Team Providers Care Mold Tooling Technician Name Role Phone Shira Ibarra MD Primary Care Provider Unavailable Mick Calvillo Primary Care Provider Encounter Details Date Type Department Care Team Description 08/31/2020 Orders Only Medical Records [address] [place] [address] Carly Bear MD [address] [place] [address] Social History Tobacco Use Types Packs/Day Years [...] Certified Gastroenterology and Internal Medicine Transplant Hepatology [facility] documented in this encounter Plan of Treatment Not on file documented as of this encounter Procedures Procedure Name Priority Date/Time Associated Diagnosis Comments OUTSIDE PATHOLOGY Routine 08/29/2020 documented in this encounter Results * OUTSIDE PATHOLOGY (08/29/2020) Carly Bear MD OUTSIDE LAB documented in this encounter Visit Diagnoses Not on filedocumented in this encounter Care Teams Mold Tooling Technician Relationship Specialty Start Date End Date Shira Ibarra MD PCP - General Internal Medicine 05/20/1711/03 Mick Calvillo [address] [place] [address] PCP - General Internal Medicine 11/04/21 documented as of this encounter
--- OUTSIDE RECORDS SUMMARY | 2024-11-08 14:45 | XMS_ITS | Encounter Summary ---
Author Organization [facility] Address [address] [place] [address] Care Team Providers Care Labor Economics Teacher Name Role Phone Shira Ibarra MD Primary Care Provider Unavailable Mick Calvillo Primary Care Provider Encounter Details Date Type Department Care Team Description 06/01/2017 Release of Information Medical Records [address] [place] [address] Abstract, Provider Social History Tobacco Use Types [...] on filedocumented in this encounter Care Teams Labor Economics Teacher Relationship Specialty Start Date End Date Shira Ibarra MD PCP - General Internal Medicine 05/20/1711/03 Mick Calvillo [address] [place] [address] PCP - General Internal Medicine 11/04/21 documented as of this encounter
--- OUTSIDE RECORDS SUMMARY | 2024-11-08 14:45 | XMS_ITS | Encounter Summary ---
Author Organization [facility] Address [address] [place] [address] Care Team Providers Care Health And Physical Education Teacher Name Role Phone Mick Calvillo Primary Care Provider [phone] Encounter Details Date Type Department Care Team Description 09/26/2023 Rn Vascular Report Medical Records [address] [place] [address] Jesus Shrestha MD Social History Tobacco Use [...] on filedocumented in this encounter Care Teams Health And Physical Education Teacher Relationship Specialty Start Date End Date Mick Calvillo [address] [place], [place] [phone] PCP - General Internal Medicine 11/04/21 documented as of this encounter
--- OUTSIDE RECORDS SUMMARY | 2024-11-08 14:45 | XMS_ITS | Encounter Summary ---
Author Organization [facility] Address [address] [place] [address] Care Team Providers Care Manufacturing Cost Estimator Name Role Phone Mick Calvillo Primary Care Provider [phone] Encounter Details Date Type Department Care Team Description 06/22/2023 Energy Systems Engineer Report Medical Records [address] [place] [address] Jesus Shrestha MD Social History Tobacco Use [...] on filedocumented in this encounter Care Teams Manufacturing Cost Estimator Relationship Specialty Start Date End Date Mick Calvillo [address] [place], [place] [phone] PCP - General Internal Medicine 11/04/21 documented as of this encounter
--- OUTSIDE RECORDS SUMMARY | 2024-11-08 14:45 | XMS_ITS | Encounter Summary ---
Author Organization [facility] Address [address] [place] [address] Care Team Providers Care Advertising Sales Manager Name Role Phone Mick Calvillo Primary Care Provider [phone] Encounter Details Date Type Department Care Team Description 02/13/2022 [facility] Adult [address] [address] Cristela Doan PA-C Social History Tobacco Use Types Packs/Day [...] Exposure Response Date Recorded In the last 10 days, have yo u been in contact with someone who was confirmed or suspected to have Coronavirus/COVID-19? No / Unsure 02/13/2022 8:19 AM EDT documented as of this encounter Plan of Treatment Not on file documented as of this encounter Visit Diagnoses Not on filedocumented in this encounter Care Teams Advertising Sales Manager Relationship Specialty Start Date End Date Mick Calvillo [address] [place] [address] PCP - General Internal Medicine 11/04/21 documented as of this encounter
--- OUTSIDE RECORDS SUMMARY | 2024-11-08 14:45 | XMS_ITS | Encounter Summary ---
Author Organization [facility] Address [address] [place] [address] Care Team Providers Care Rig Operator Name Role Phone Shira Ibarra MD Primary Care Provider Unavailable Mick Calvillo Primary Care Provider [phone] Encounter Details Date Type Department Care Team Description 07/17/2017 Transfer Records Medical Records [address] [place] [address] Abstract, Provider Social History Tobacco Use Types [...] on filedocumented in this encounter Care Teams Rig Operator Relationship Specialty Start Date End Date Shira Ibarra MD PCP - General Internal Medicine 05/20/1711/03 Mick Calvillo [address] [place] [address] PCP - General Internal Medicine 11/04/21 documented as of this encounter
--- OUTSIDE RECORDS SUMMARY | 2024-11-08 14:45 | XMS_ITS | Encounter Summary ---
Author Organization [facility] Address [address] [place] [address] Care Team Providers Care Monitoring Engineer Name Role Phone Mick Calvillo Primary Care Provider [phone] Encounter Details Date Type Department Care Team Description 12/08/2022 Matrix Inspector Report Medical Records [address] [place] [address] Jesus Shrestha MD Social History Tobacco Use [...] on filedocumented in this encounter Care Teams Monitoring Engineer Relationship Specialty Start Date End Date Mick Calvillo [address] [place], [place] [phone] PCP - General Internal Medicine 11/04/21 documented as of this encounter
--- OUTSIDE RECORDS SUMMARY | 2024-11-08 14:45 | XMS_ITS | Encounter Summary ---
Author Organization [facility] Address [address] [place] [address] Care Team Providers Care Mosaic Technician Name Role Phone Mick Calvillo Primary Care Provider [phone] Encounter Details Date Type Department Care Team Description 12/30/2023 Refill Adult Medicine [address] [address] Mick Calvillo [address] [place] [address] Social History Tobacco Use Types Packs/Day Years [...] on filedocumented in this encounter Care Teams Mosaic Technician Relationship Specialty Start Date End Date Mick Calvillo [address] [place] [id number] PCP - General Internal Medicine 11/04/21 documented as of this encounter
--- OUTSIDE RECORDS SUMMARY | 2024-11-08 14:45 | XMS_ITS | Encounter Summary ---
Author Organization [facility] Address [address] [place] [address] Care Team Providers Care Research Associate Policy Name Role Phone Mick Calvillo Primary Care Provider [phone] Encounter Details Date Type Department Care Team Description 08/17/2023 Public Health Clinical Nurse Specialist Report Medical Records [address] [place] [address] Jesus Shrestha MD Social History Tobacco Use [...] on filedocumented in this encounter Care Teams Research Associate Policy Relationship Specialty Start Date End Date Mick Calvillo [address] [place], [place] [phone] PCP - General Internal Medicine 11/04/21 documented as of this encounter
--- OUTSIDE RECORDS SUMMARY | 2024-11-08 14:45 | XMS_ITS | Encounter Summary ---
Author Organization [facility] Address [address] [place] [address] Care Team Providers Care Belt Worker Name Role Phone Shira Ibarra MD Primary Care Provider Unavailable Mick Calvillo Primary Care Provider [phone] Encounter Details Date Type Department Care Team Description 08/29/2020 Hospital Medical Records [address] [place] [address] Carly Bear MD [address] [place] [address] Social History Tobacco Use Types Packs/Day Years [...] on filedocumented in this encounter Care Teams Belt Worker Relationship Specialty Start Date End Date Shira Ibarra MD PCP - General Internal Medicine 05/20/1711/03 Mick Calvillo [address] [place], [place] [phone] PCP - General Internal Medicine 11/04/21 documented as of this encounter
--- OUTSIDE RECORDS SUMMARY | 2024-11-08 14:45 | XMS_ITS | Encounter Summary ---
Author Organization [facility] Address [address] [place] [address] Care Team Providers Care Brim Stretcher Name Role Phone Mick Calvillo Primary Care Provider [phone] Encounter Details Date Type Department Care Team Description 12/30/2023 Refill Adult Medicine [facility] [address] [place] [address] Fadumo Todd PATeresaC [address] [place] [address] Social History Tobacco Use Types Packs/Day Years [...] on filedocumented in this encounter Care Teams Brim Stretcher Relationship Specialty Start Date End Date Mick Calvillo [address] [place] [address] PCP - General Internal Medicine 11/04/21 documented as of this encounter
--- OUTSIDE RECORDS SUMMARY | 2024-11-08 14:46 | XMS_ITS | Encounter Summary ---
Author Organization [facility] Address [address] [place] [address] Care Team Providers Care Seat Cover Maker Name Role Phone Shira Ibarra MD Primary Care Provider Unavailable Mick Calvillo Primary Care Provider Reason for Visit * Reason Comments E-prescribe Rx Request Encounter Details Date Type Department Care Team Description 06/25/2020 Refill Adult Medicine - [address] [address] Shira Ibarra MD E-prescribe Rx Request Social [...] N/A Patients current insurance carrier is: Payor: [employer] / Plan: [employer] / Product Type: MEDICAID RISK documented in this encounter Plan of Treatment Not on file documented as of this encounter Visit Diagnoses Not on filedocumented in this encounter Care Teams Seat Cover Maker Relationship Specialty Start Date End Date Shira Ibarra MD PCP - General Internal Medicine 05/20/1711/03 Mick Calvillo [address] [place] [id number] PCP - General Internal Medicine 11/04/21 documented as of this encounter
--- OUTSIDE RECORDS SUMMARY | 2024-11-08 14:46 | XMS_ITS | Encounter Summary ---
Author Organization [facility] Address [address] [place] [address] Care Team Providers Care Coal Tram Driver Name Role Phone Shira Ibarra MD Primary Care Provider Unavailable Mick Calvillo Primary Care Provider [phone] Encounter Details Date Type Department Care Team Description 01/17/2021 Refill Adult Medicine [address] [address] Shira Ibarra MD Social History Tobacco Use [...] on filedocumented in this encounter Care Teams Coal Tram Driver Relationship Specialty Start Date End Date Shira Ibarra MD PCP - General Internal Medicine 05/20/1711/03 Mick Calvillo [address] [place] [id number] PCP - General Internal Medicine 11/04/21 documented as of this encounter
--- OUTSIDE RECORDS SUMMARY | 2024-11-08 14:46 | XMS_ITS | Clinical Summary ---
Author Organization [facility] [address] [place] [address] [place] [phone] Phone Care Team Providers Care Environmental Programs Specialist Name Role Phone Mick Calvillo MD Primary Care Provider Allergies Active Allergy Reactions Criticality Noted Date Comments Bee Venom Protein (Honey Bee) Anaphylaxis High 06/22 Bee Stings Medications atorvastatin (LIPITOR) 20 mg tablet TAKE 1 TABLET BY MOUTH EVERY DAY 04/24/2023 Active sildenafiL (VIAGRA) 100 mg tablet Take 0.5 Tabs by mouth as needed for Erectile Dysfunction. 07/09/2020 Active FA/mv,Ca,iron,m in/lycopene/lut (MULTIVITAL ORAL) Take by mouth. Active omeprazole (PriLOSEC) [address] capsule Take 1 capsule (20 mg total) by mouth 1 (one) time each day. Do not crush or chew. 90 capsule 1 09/19/2024 Active metFORMIN XR (GLUCOPHAGE-XR) 500 mg 24 hr tablet Take 1 tablet (500 mg total) by mouth 1 (one) time each day with breakfast. Do not crush, chew, or split. 90 tablet 1 09/21/2024 Active Active Problems Problem Noted Date Diagnosed Date Metatarsalgia of both feet 09/19/2024 Colon polyps 09/12/2020 Overview (06/13/2024): _2020 Reflux esophagitis 09/12/2020 Overview (06/13/2024): Upper endoscopy-08/26-LA grade B reflux esophagitis, benign-appearing esophageal stenosis, gastritis with hemorrhage, biopsied, small hiatal hernia-PPI to continue. Allergic rhinitis 06/22/2017 DJD (degenerative joint disease) 06/22/2017 Overview (06/13/2024): knees Gastritis 06/22/2017 Pure hypercholesterolemia 06/22/2017 Overview (06/13/2024): Ascvd 3.8%-10% History of substance abuse ([facility] V24, [facility] V28) 05/27/2017 Overview (06/13/2024): Marijuana, alcohol, cocaine Encounters Date Type Department Care Team Description 09/19/2024 8:30 AM EDT Office Visit Adult Medicine [address] [phone] Fadumo Todd PA Adult general medical examination (Primary Dx); Metatarsalgia of both feet; Pure hypercholesterolemia; Polyp of colon, unspecified part of colon, unspecified type; Multiple atypical skin moles; Screening for prostate cancer; Screening for diabetes mellitus; Newly diagnosed diabetes ([facility] V24, [facility] V28) from Last 3 Months Immunizations Name Administration Dates Next Due Hepatitis A Adult (Havrix; Vaqta) 19yo and older 01/19/2014,07/21/2013 Hepatitis B (Qiyrmxt-B-Ophgj , Recombivax HB-Adult) 19yo and older 01/19/2014,07/21/2013 [...] Gastritis 06/22/2017 DX:Gastritis History of substance abuse ( [facility] V24, [facility] V28) 05/27/2017 DX:History of substance abus e ([facility]); COMMENT: Marijuana, alcohol, cocaine Pure hypercholesterolemia 06/22/2017 [...] care for your loved ones. For example, early childhood educator aide or elderly care for an older adult? [...] 9:30 AM EDT Office Visit Adult Medicine [address] [phone] Fadumo oTdd PA [address] [place] [address] 01/03/2025 12:30 PM EDT Appointment [facility] Endoscopy [address] [place] [phone] Ravi Bear MD [address] [facility] [address] [place] [address] Health Maintenance Due Date Last Done Comments [...] Urine Albumin-Creatinine Ratio (uACR) 09/22/2024 Influenza Vaccine (Season Ended) 2025 Diabetes: Blood Sugar Contro l Test (HGBA1C) [...] age to complete this topic Meningococcal B Vaccine Aged Out No l onger eligible based on patient's age to complete this topic RSV Immunization Patients Under 20 months Aged Out No longer eligible based on [...] for diabetes mellitus HM COLONOSCOPY Routine 08/29/2020 HM HEPATITIS C SCREENING Routine 08/23/2020 from Last 3 Months or Most Recently Relevant to Health Maintenance Results * Thyroid stimulating hormone with reflex to free t4 and free t3 (09/19/2024 9:15 AM EDT) Pathologist [facility] TSH 1.91 0.40 - 4.00 mcIU/mL LAB CHEMISTRY METHOD 09/19/2024 1:08 PM EDT [facility] Blood Venous blood specimen / Unknown Venipuncture / Unknown 09/19/2024 9:15 AM EDT 09/19/2024 9:15 AM EDT Fadumo ROBB LAB BLOOD ORDERABLES Fin al Result [facility] [address] [place] [address], [place] [phone] * (ABNORMAL) Lipid panel with reflex to direct LDL (09/19/2024 9:15 AM EDT) [facility] Cholesterol 234(H) 0 - 200 mg/dL LAB CHEMISTRY METHOD 09/19/2024 1:13 PM EDT [facility] Triglycerides 272(H) 0 - 150 mg/dL LAB CHEMISTRY METHOD 09/19/2024 1:13 PM EDT [facility] HDL 45 >=40 mg/dL LAB CHEMISTRY METHOD 09/19/2024 1:13 PM EDT [facility] LDL Calculated 135(H) 0 - 100 mg/dL LAB CHEMISTRY METHOD 09/19/2024 1:13 PM EDT [facility] VLDL Cholesterol Jason 54.4 mg/dL LAB CHEMISTRY METHOD 09/19/2024 1:13 PM EDT [facility] Non HDL Chol. (LDL+VLDL) 189(H) <145 mg/dL LAB CHEMISTRY METHOD 09/19/2024 1:13 PM EDT [facility] Chol/HDL Ratio 5.2(H) 0.0 - 4.4 LAB CHEMISTRY METHOD 09/19/2024 1:13 PM EDT [facility] Blood Venous blood specimen / Unknown Venipuncture / Unknown 09/19/2024 9:15 AM EDT 09/19/2024 9:15 AM EDT Fadumo Cherise ROBB LAB BLOOD ORDERABLES Fin al Result [facility] [address] [place] [address], * CBC auto differential (09/19/2024 9:15 AM EDT) WBC 9.2 4.8 - 10.8 K/mcL LAB HEMETOLOGY METHOD 09/19/2024 10:06 AM EDT [facility] RBC 5.20 4.50 - 5.50 M/[facility] LAB HEMETOLOGY METHOD 09/19/2024 10:06 AM EDT [facility] Hemoglobin 15.9 13.5 - 17.5 g/dL LAB HEMETOLOGY METHOD 09/19/2024 10:06 AM EDT [facility] Hematocrit 47.5 42.0 - 54.0 % LAB HEMETOLOGY METHOD 09/19/2024 10:06 AM [facility] MCV 90.6 79.0 - 98.0 FL LAB HEMETOLOGY METHOD 09/19/2024 10:06 AM EDT [facility] MCH 30.3 27.0 - 32.0 pcg LAB HEMETOLOGY METHOD 09/19/2024 10:06 AM [facility] MCHC 33.5 32.0 - 37.0 g/dL LAB HEMETOLOGY METHOD 09/19/2024 10:06 AM [facility] RDW 12.8 11.0 - 15.0 % LAB HEMETOLOGY METHOD 09/19/2024 10:06 AM [facility] Platelets 354 130 - 400 K/mcL LAB HEMETOLOGY METHOD 09/19/2024 10:06 AM [facility] MPV 9.5 7.0 - 11.0 FL LAB HEMETOLOGY METHOD 09/19/2024 10:06 AM [facility] NRBC 0.0 <1.0 % LAB HEMETOLOGY METHOD 09/19/2024 10:06 AM [facility] NRBC Absolute 0.00 <0.10 K/mcL LAB HEMETOLOGY METHOD 09/19/2024 10:06 AM [facility] Neutrophils Relative 60.4 % LAB HEMETOLOGY METHOD 09/19/2024 10:06 AM [facility] Lymphocytes Relative 27.7 % LAB HEMETOLOGY METHOD 09/19/2024 10:06 AM [facility] Monocytes Relative 7.8 % LAB HEMETOLOGY METHOD 09/19/2024 10:06 AM [facility] Eosinophils Relative 2.9 % LAB HEMETOLOGY METHOD 09/19/2024 10:06 AM [facility] Basophils Relative 0.9 % LAB HEMETOLOGY METHOD 09/19/2024 10:06 AM [facility] Immature Granulocytes Relative 0.3 % LAB HEMETOLOGY METHOD 09/19/2024 10:06 AM [facility] Neutrophils Absolute 5.56 1.50 - 7.00 K/mcL LAB HEMETOLOGY METHOD 09/19/2024 10:06 AM [facility] Lymphocytes Absolute 2.55 1.00 - 5.00 K/mcL LAB HEMETOLOGY METHOD 09/19/2024 10:06 AM [facility] Monocytes Absolute 0.72 0.20 - 1.00 K/mcL LAB HEMETOLOGY METHOD 09/19/2024 10:06 AM EDT [facility] Eosinophils Absolute 0.27 0.00 - 0.50 K/[facility] LAB HEMETOLOGY METHOD 09/19/2024 10:06 AM EDT [facility] Basophils Absolute 0.08 0.00 - 0.20 K/[facility] LAB HEMETOLOGY METHOD 09/19/2024 10:06 AM EDT [facility] Immature Granulocytes Absolute 0.03 0.00 - 0.03 K/[facility] LAB HEMETOLOGY METHOD 09/19/2024 10:06 AM EDT [facility] Blood Venous blood specimen / Unknown Venipuncture / Unknown 09/19/2024 9:15 AM EDT 09/19/2024 9:15 AM EDT Fadumo ROBB LAB BLOOD ORDERABLES Fin al Result Performing Organization Address City/[facility]/ZIP Co de Phone Number [facility] [address] [place] [address], [place] [phone] * Magnesium (09/19/2024 9:15 AM EDT) [facility] Magnesium 2.3 1.9 - 2.6 mg/dL LAB CHEMISTRY METHOD 09/19/2024 1:00 PM EDT [facility] Blood Venous blood specimen / Unknown Venipuncture / Unknown 09/19/2024 9:15 AM EDT 09/19/2024 9:15 AM EDT Fadumo ROBB LAB BLOOD ORDERABLES Fin al Result [facility] [address] [place] [address], [place] [phone] * (ABNORMAL) Hemoglobin A1c (09/19/2024 9:15 AM EDT) Hemoglobin A1C 8.1(H) <6.5 % LAB CHEMISTRY METHOD 09/19/2024 12:35 PM EDT [facility] Mean Bld Glu Estim. 186 mg/dL LAB CHEMISTRY METHOD 09/19/2024 12:35 PM [facility] Blood Venous blood specimen / Unknown Venipuncture / Unknown 09/19/2024 9:15 AM EDT 09/19/2024 9:15 AM EDT Fadumo ROBB LAB BLOOD ORDERABLES Fin al Result [facility] [address] [place] [address], * (ABNORMAL) Comprehensive metabolic panel (09/19/2024 9:15 AM EDT) Sodium 138 133 - 145 mmol/L LAB CHEMISTRY METHOD 09/19/2024 1:13 PM [facility] Potassium 4.0 3.5 - 5.5 mmol/L LAB CHEMISTRY METHOD 09/19/2024 1:13 PM [facility] Chloride 106 96 - 110 mmol/L LAB CHEMISTRY METHOD 09/19/2024 1:13 PM [facility] CO2 26 21 - 32 mmol/L LAB CHEMISTRY METHOD 09/19/2024 1:13 PM [facility] Anion Gap 6 3 - 11 LAB CHEMISTRY METHOD 09/19/2024 1:13 PM [facility] Glucose 147(H) 70 - 100 mg/dL LAB CHEMISTRY METHOD 09/19/2024 1:13 PM [facility] BUN 17 5 - 25 mg/dL LAB CHEMISTRY METHOD 09/19/2024 1:13 PM [facility] Creatinine 1.04 0.70 - 1.30 mg/dL LAB CHEMISTRY METHOD 09/19/2024 1:13 PM [facility] eGFR 85 >=60 mL/min/1. 73m2 LAB CHEMISTRY METHOD 09/19/2024 1:13 PM EDT [facility] Comment:Calculation based on the??Chronic Kidney Disease Epidemiology Collaboration (CKD-EPI) equation refit??without adjustment for race. BUN/Creatinine Ratio 16.3 LAB CHEMISTRY METHOD 09/19/2024 1:13 PM EDT [facility] Calcium 9.7 8.5 - 10.5 mg/dL LAB CHEMISTRY METHOD 09/19/2024 1:13 PM T [facility] AST (SGOT) 57(H) 10 - 42 unit/L LAB CHEMISTRY METHOD 09/19/2024 1:13 PM [facility] ALT (SGPT) 102(H) 10 - 60 unit/L LAB CHEMISTRY METHOD 09/19/2024 1:13 PM [facility] Alkaline Phosphatase 141(H) 42 - 121 unit/L LAB CHEMISTRY METHOD 09/19/2024 1:13 PM EDT [facility] Total Protein 7.4 6.0 - 8.0 g/dL LAB CHEMISTRY METHOD 09/19/2024 1:13 PM [facility] Albumin 4.0 3.2 - 5.0 g/dL LAB CHEMISTRY METHOD 09/19/2024 1:13 PM [facility] Total Bilirubin 0.6 0.0 - 1.4 mg/dL LAB CHEMISTRY METHOD 09/19/2024 1:13 PM [facility] Blood Venous blood specimen / Unknown Venipuncture / Unknown 09/19/2024 9:15 AM EDT 09/19/2024 9:15 AM EDT us Fadumo ROBB LAB BLOOD ORDERABLES Fin al Result [facility] [address] [place] [address], * Hm Colonoscopy (08/29/2020) Colonoscopy No interpretation , Abstracted Anatomical Region Laterality Modality Other Historical Provider HEALTH MAINTENANCE Final Result * Hepatitis C Screening (08/23/2020) Hepatitis C Screening Abstracted Historical Provider HEALTH MAINTENANCE Final Result from Last 3 Months or Most Recently Relevant to Health Maintenance Insurance [facility] [employer] Care Teams Environmental Programs Specialist Relationship Specialty Start Date End Date Mick Calvillo MD [address] [place], [place] PCP - General Internal Medicine 11/04/21
--- OUTSIDE RECORDS SUMMARY | 2024-11-08 14:46 | XMS_ITS | Encounter Summary ---
Author Organization [facility] Address [address] [place] [address] Care Team Providers Care Payroll Tax Analyst Name Role Phone Shira Ibarra MD Primary Care Provider Unavailable Mick Calvillo Primary Care Provider [phone] Reason for Visit * Reason Onset Date Comments TEST RESULTS 07/27/2020 Encounter Details Date Type Department Care Team Description 07/27/2020 Telephone Adult Medicine - [address] [address] Shira Ibarra MD TEST RESULTS Social History [...] performed: juan josé Who ordered this test?: Sihra Ibarra Is the doctor here today?: YES [...] on filedocumented in this encounter Care Teams Payroll Tax Analyst Relationship Specialty Start Date End Date Shira Ibarra MD PCP - General Internal Medicine 05/20/1711/03 Mick Calvillo [address] [place] [id number] PCP - General Internal Medicine 11/04/21 documented as of this encounter
--- OUTSIDE RECORDS SUMMARY | 2024-11-08 14:46 | XMS_ITS | Encounter Summary ---
Author Organization [facility] Address [address] [place] [address] Care Team Providers Care Furniture Removalist'S Assistant Name Role Phone Shira Ibarra MD Primary Care Provider Unavailable Mick Calvillo Primary Care Provider [phone] Encounter Details Date Type Department Care Team Description 01/04/2021 Refill Adult [address] [address] Joanna Burkett PA-C Social History Tobacco Use [...] on filedocumented in this encounter Care Teams Furniture Removalist'S Assistant Relationship Specialty Start Date End Date Shira Ibarra MD PCP - General Internal Medicine 05/20/1711/03 Mick Calvillo [address] [place] [id number] PCP - General Internal Medicine 11/04/21 documented as of this encounter
--- OUTSIDE RECORDS SUMMARY | 2024-11-08 14:46 | XMS_ITS | Encounter Summary ---
Author Organization [facility] Address [address] [place] [address] Care Team Providers Care Plans Examiner Name Role Phone Shira Ibarra MD Primary Care Provider Unavailable Mick Calvillo Primary Care Provider [phone] Encounter Details Date Type Department Care Team Description 11/03/2021 Refill Adult Medicine [address] [address] Shira Ibarra MD Social History Tobacco Use [...] Telephone Encounter - Corina Bean L.P.N. - 11/04/2021 10:04 AM EDT My Chart sent Needs new PCP and appointment documented in this encounter Plan of Treatment Not on file documented as of this encounter Visit Diagnoses Not on filedocumented in this encounter Care Teams Plans Examiner Relationship Specialty Start Date End Date Shira Ibarra MD PCP - General Internal Medicine 05/20/1711/03 Mick Calvillo [address] [place] [id number] PCP - General Internal Medicine 11/04/21 documented as of this encounter
== END 2024-11-08 14:43 | disposition home or self-care (01) ==
LOC: HO.HOS 13:29
PROVIDERS: Visit Provider Orthopaedic Surgery
DX: G56.30 Lesion of radial nerve, unspecified upper limb (principal); M77.11 Lateral epicondylitis, right elbow; M25.521 Pain in right elbow
CPT/HCPCS: 99215

== ENCOUNTER → 2024-11-08 13:29 | Outpatient (BNVA) | payer OTHER, SELFPAY | PROVIDERS: Visit Provider Orthopaedic Surgery | DX: G56.30 Lesion of radial nerve, unspecified upper limb (principal); M77.11 Lateral epicondylitis, right elbow; M25.521 Pain in right elbow; Z98.890 Other specified postprocedural states | CPT/HCPCS: 99212 ==

== ENCOUNTER 2025-01-25 12:18 | Outpatient (AMB) | payer OTHER, SELFPAY ==
--- NOTE | 2025-01-25 12:46 | MHC.OFFVIS ---
Vital Signs 01/25/25 12:59 Height 6 ft 3 in Weight 300 lb BMI 37.5 Intake Visit Reasons: OV-right elbow f/u-6-8 week follow up Intake Note: Black 54 yr old male presents today for his follow up visit for his Right radial hand tingling & Right lateral epicondylitis, S/P debridement DOS: 02/10/[address] Shrestha (Declared MMI on 08/29/24) State he continues to have pain on and off. Reports he has good and bad days. Patient would like to discuss MRI. Allergies bee pollen (BEE STINGS) Allergy (Unknown, Verified 01/25/25 13:08) SWELL UP HPI HPI OV-right elbow f/u-6-8 week follow up: Details: Cheko is a 54 year old right hand dominant man who returns for a follow up of his right hand tingling & lateral epicondylitis. He still occasionally gets some pain directly over the lateral epicondyle, primarily with overuse activities such as stirring. He also continues to have a shocking sensation going from his volar radial forearm to the dorsal radial aspect of his hand. This occurs when he pronates his hand fully. The pain he had in the dorsal aspect of his proximal forearm has improved however and is not so bothersome. He is currently speaking with a senior property manager concerning his work injury case and further testing. 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 Review of Systems Const All systems reviewed & are unremarkable except as noted in HPI and below Physical Exam Vital Signs: BMI result Body Mass Index 37.5 Const General: no acute distress and alert Orientation/consciousness: patient oriented x3 Neuro General: patient oriented x3 Extrem Other: Evaluation of Right Upper Extremity: The patient is alert, oriented, and in no acute distress Neuro: Median, Ulnar, Radial nerves motor and sensory intact and sensation is normal to the tips of all digits No thenar or intrinsic wasting Good APB muscle belly firing and good finger cross Vascular: Cap refill brisk ROM: He can make a fist and extend all his digits Strong finger & wrist extension, symmetrical with other side No pain with resisted extension of thumb, index, middle, ring, and small fingers Some pain referred to lateral epicondyle with resisted wrist extension Nerve Conduction Study: IMPRESSION: 1. This is an abnormal study. 2. 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 3. There is no electrodiagnostic evidence for median neuropathy, ulnar neuropathy, brachial plexopathy, or cervical radiculopathy. Addie Hernandez MD, AUGUST 09/29/24 Psych Appearance: grossly normal Affect: normal affect Attitude: cooperative Assessment & Plan Assessment & Plan (1) Radial nerve irritation: Code(s): G56.30 - Lesion of radial nerve, unspecified upper limb Category: Medical (2) Right lateral epicondylitis: Code(s): M77.11 - Lateral epicondylitis, right elbow Category: Medical (3) Elbow pain, right: Onset Date: ~09/08/22 Code(s): M25.521 - Pain in right elbow Category: Medical Plan Assessment & Plan: 1. Right dorsal radial hand tingling Distribution most consistent with irritation of the superficial radial nerve at about the wrist 2. Right lateral epicondylitis, S/P debridement DOS: 02/10/[address] Shrestha Declared MMI on 08/29/24 His symptoms of pain & tingling have both been improving, but are still occasionally present I had a discussion with him concerning these conditions No operative indications I recommend activity modification at this time. He should limit or avoid activities which cause his symptoms. Dr. Shrestha has noted that the patient should avoid jobs with heavy or repetitive lifting activities He should limit or avoid any heavy lifting or gripping activities He is currently speaking with his senior property manager concerning his work injury, and I assume for something along the lines of a functional capacity exam. At this time he can follow up prn He is happy with the current plan. Scribed for Joanna Grimes MD by Denny Malloy medical administrative assistant, on 01/25/25 at 1:05 PM, EST. Coding Level of Care Code Est Pt Level 4 (68129) Diagnoses Radial nerve irritation G56.30 Right lateral epicondylitis M77.11 Elbow pain, right M25.521
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
--- OUTSIDE RECORDS SUMMARY | 2025-01-25 12:49 | XMS_ITS ---
Author Name [facility] Organization Unknown Care Team Organization Name Specialty Phone Email Start Date End Da te [facility] Jayne Donahue Primary Care 11/10/20222023 [facility] Mick Calvillo Primary Care 05/13/202202/03
[2025-01-25 12:59] VITALS: BMI 37.5
== END 2025-01-25 13:24 | disposition home or self-care (01) ==
LOC: HO.HOS 12:19
PROVIDERS: Visit Provider Orthopaedic Surgery
DX: G56.30 Lesion of radial nerve, unspecified upper limb (principal); M77.11 Lateral epicondylitis, right elbow; M25.521 Pain in right elbow
CPT/HCPCS: 99214

== ENCOUNTER → 2025-01-25 12:18 | Outpatient (BNVA) | payer OTHER, SELFPAY | PROVIDERS: Visit Provider Orthopaedic Surgery | DX: G56.31 Lesion of radial nerve, right upper limb (principal); M77.11 Lateral epicondylitis, right elbow; M25.521 Pain in right elbow | CPT/HCPCS: 99212 ==